=== PATIENT | male | born 1945 | race Caucasian/White ===

== ENCOUNTER 2022-05-26 16:52 | Inpatient (IN) | payer OTHER, MEDICARE ==
[~2022-05-26 16:52] MED LIST: Heparin 1,000 UNITS/ML VIAL ONE; Iopamidol 370 76% 100 ML VIAL ONE; Iopamidol-370 76% 500 ML 1 ML ONE
[2022-05-26] MEDS ORDERED: Boostrix 0.5 ML (Tdap) VIAL (>/=7 yrs of age) ONE (16:58)
[2022-05-26] MEDS ORDERED: CEFAZOLIN 1 GM VIAL ONE (16:58)
[2022-05-26] MEDS ORDERED: FENTANYL 50 MCG/ML 1 ML VIAL ONE ×2 (16:59→18:31)
[2022-05-26 17:17] LABS: #Lymphocytes 1.4 thou/uL (1.20-3.40); #Monocytes 0.7 thou/uL (0.11-0.59); #Neutrophils 12.8 thou/uL (1.40-6.50); %Basophils 0.1 % (0.0-1.0); %Eosinophils 0.3 % (0.0-10.0); %Lymphocytes 9.1 % (21.0-51.0); %Monocytes 4.6 % (0.0-10.0); %Neutrophils 85.9 % (42.0-75.0); Hemoglobin 10.8 g/dL (14.0-18.0); Mean Corpuscular HGB CONC 34.2 g/dL (32.0-36.0); Mean Corpuscular Hemoglobin 35.9 pg (27.0-31.0); Platelet Count 152 thou/uL (130-400); RBC Distribution Width 11.9 % (11.5-14.5); Red Blood Cell (RBC) Count 3.02 mill/uL (4.70-6.10); White Blood Cell (WBC) Count 14.9 thou/uL (4.8-10.8)
[2022-05-26 17:27] LABS: PTT 28.4 sec (22.9-36.1); Prothrombin Time 13.7 sec (12.0-14.7)
[2022-05-26 17:28] LABS: ALT (SGPT) 29 U/L (8-55); AST (SGOT) 27 U/L (5-34); Albumin 3.1 g/dL (3.4-4.8); Alkaline Phosphatase 48 U/L (40-110); Anion Gap 12 mmol/L (10-20); BUN (Urea Nitrogen) 17 mg/dL (8.4-25.7); Bilirubin, Total 0.5 mg/dL (0.2-1.2); Calc. Creatinine Clearance 0 mL/min (70-130); Calcium 8.2 mg/dL (7.8-10.44); Carbon Dioxide 17 mmol/L (23-31); Chloride 112 mmol/L (98-107); Estimated GFR 53; Globulin 1.9 g/dL (2.4-3.5); Glucose 153 mg/dL (83-110); Potassium 4.1 mmol/L (3.5-5.1); Sodium 137 mmol/L (136-145)
[2022-05-26] MEDS ORDERED: Morphine 4 MG/ML VIAL SLOW IVP PRN ×2 (17:46→18:04)
[2022-05-26] MEDS ORDERED: TETANUS, DIPHTHERIA TOX,ADULT (TDVAX) 0.5 ML VIAL IM ONE (17:46)
[2022-05-26] MEDS ORDERED: Dextrose 5% in Water 1,000 ML IV PRN (17:46)
[2022-05-26] MEDS ORDERED: Dextrose 50% Abboject 50 ML SYRINGE SLOW IVP PRN (17:46)
[2022-05-26] MEDS ORDERED: Sodium Chloride 0.9% 1,000 ML IV SCH (18:00)
[2022-05-26 18:07] LABS: Phosphorus 2.7 mg/dL (2.3-4.7)
[2022-05-26 18:10] LABS: Magnesium 1.8 mg/dL (1.6-2.6)
[2022-05-26] MEDS ORDERED: Sodium Phosphate 15 MMOL in Sodium Chloride 0.9% 250 ML 250 ML IVPB SCH (18:15)
[2022-05-26] MEDS ORDERED: Magnesium 2 GM/50 ML(in water) 2 GM in Premix Bag 1 BAG IVPB SCH (18:15)
[2022-05-26] MEDS ORDERED: Lidocaine 1% (PF) 30 ML VIAL ONE ×2 (19:02→19:13)
[2022-05-26] MEDS: Ondansetron PF 4 MG/2 ML Vial IVP PRN (20:55)
[2022-05-26] MEDS: Famotidine/PF 20 mg/2ml Vial SLOW IVP SCH (21:32)
[2022-05-26] MEDS: Sodium Chloride 0.9% 1,000 ML IV SCH (21:46)
[2022-05-26 23:05] LABS: #Lymphocytes 0.8 thou/uL (1.20-3.40); #Monocytes 1.1 thou/uL (0.11-0.59); #Neutrophils 12.2 thou/uL (1.40-6.50); %Basophils 0.1 % (0.0-1.0); %Eosinophils 0.1 % (0.0-10.0); %Lymphocytes 5.4 % (21.0-51.0); %Neutrophils 86.4 % (42.0-75.0); Hemoglobin 10.4 g/dL (14.0-18.0); Mean Corpuscular HGB CONC 34.5 g/dL (32.0-36.0); Mean Corpuscular Hemoglobin 33.6 pg (27.0-31.0); Mean Corpuscular Volume 97.4 fl (78.0-98.0); Mean Platelet Volume 6.8 fL (7.4-10.4); Platelet Count 123 thou/uL (130-400); RBC Distribution Width 14.4 % (11.5-14.5); Red Blood Cell (RBC) Count 3.09 mill/uL (4.70-6.10); White Blood Cell (WBC) Count 14.1 thou/uL (4.8-10.8)
[2022-05-26 23:21] LABS: Lactic Acid 1.7 mmol/L (0.5-2.2)
[2022-05-26 23:26] LABS: Anion Gap 12 mmol/L (10-20); BUN (Urea Nitrogen) 19 mg/dL (8.4-25.7); Calc. Creatinine Clearance 48 mL/min (70-130); Carbon Dioxide 19 mmol/L (23-31); Chloride 111 mmol/L (98-107); Estimated GFR 42; Glucose 166 mg/dL (83-110); Potassium 4.7 mmol/L (3.5-5.1); Sodium 137 mmol/L (136-145)
[2022-05-27] MEDS ORDERED: ALBUMIN 5% 25 GM/250 ML BAG IVPB SCH (00:15)
[2022-05-27] MEDS: FENTANYL 50 MCG/ML 1 ML VIAL SLOW IVP PRN ×5 (00:57→08:25)
[2022-05-27] MEDS: Insulin Regular 300 UNITS/3 ML VIAL SC PRN ×2 (02:13→05:43)
[2022-05-27 02:22] LABS: Bacteria/HPF None Seen HPF (None Seen); Bilirubin Negative (Negative); Blood, Urine 3+ (Negative); Clarity Clear (Clear); Glucose, Urine (Dipstick) 30 mg/dL (Negative); Ketone, Urine Negative (Negative); Leukocyte Negative Leu/uL (Negative); Nitrite Negative (Negative); Protein, Urine (Dipstick) 30 mg/dL (Neg-Trace); Squamous Epithelial 0-3 HPF (0-3); Urobilinogen Normal mg/dL (Less than 2)
[2022-05-27 02:23] LABS: Amphetamine Not Detected (NotDetected); Barbiturates Screen Not Detected (NotDetected); Benzodiazepine Screen Detected (NotDetected); Cocaine Metabolite Screen Not Detected (NotDetected); Methadone Not Detected (NotDetected); Methamphetamine Not Detected (NotDetected); Opiate Screen Detected (NotDetected); Oxycodone Screen Not Detected (NotDetected); Phencyclidine (PCP) Not Detected (NotDetected); THC/Cannabinoid Screen Not Detected (NotDetected); Tricyclic Screen Not Detected (NotDetected)
[2022-05-27 02:46] LABS: Specific Gravity, Urine 1.051 (1.002-1.036)
[2022-05-27 02:47] LABS: Urine Culture Reflex Yes Yes
[2022-05-27] MEDS: Ondansetron PF 4 MG/2 ML Vial IVP PRN ×2 (02:53→18:20)
[2022-05-27] MEDS: Sodium Chloride 0.9% 1,000 ML IV SCH ×3 (04:59→20:48)
[2022-05-27 05:41] LABS: #Lymphocytes 0.3 thou/uL (1.20-3.40); #Monocytes 0.7 thou/uL (0.11-0.59); #Neutrophils 9.7 thou/uL (1.40-6.50); %Basophils 0.1 % (0.0-1.0); %Eosinophils 0.1 % (0.0-10.0); %Lymphocytes 2.9 % (21.0-51.0); %Monocytes 6.8 % (0.0-10.0); %Neutrophils 90.1 % (42.0-75.0); Hemoglobin 9.5 g/dL (14.0-18.0); Mean Corpuscular HGB CONC 34.6 g/dL (32.0-36.0); Mean Corpuscular Hemoglobin 33.9 pg (27.0-31.0); Platelet Count 124 thou/uL (130-400); RBC Distribution Width 14.8 % (11.5-14.5); White Blood Cell (WBC) Count 10.7 thou/uL (4.8-10.8)
[2022-05-27 05:50] LABS: INR-International Normal Ratio 1.1; Prothrombin Time 14.7 sec (12.0-14.7)
[2022-05-27 06:23] LABS: Magnesium 2.2 mg/dL (1.6-2.6); Phosphorus 4.3 mg/dL (2.3-4.7)
[2022-05-27] MEDS: Famotidine/PF 20 mg/2ml Vial SLOW IVP SCH ×2 (08:25→20:47)
[2022-05-27] MEDS ORDERED: Zolpidem Tartrate 5 MG TAB PO PRN (08:27)
[2022-05-27] MEDS ORDERED: diphenhydrAMINE 25 MG CAP PO PRN (08:27)
[2022-05-27] MEDS ORDERED: diphenhydrAMINE 50 MG/ML VIAL IM PRN (08:27)
[2022-05-27] MEDS ORDERED: Naloxone HCl 0.4 mg/ml Vial IV PRN (08:27)
[2022-05-27] MEDS ORDERED: Promethazine HCl 25 MG/ML VIAL IM PRN (08:27)
[2022-05-27] MEDS ORDERED: HYDROmorphone 10 mg/100 ml CADD IVPB PRN ×2 (08:27→08:29)
[2022-05-27] MEDS ORDERED: diphenhydrAMINE 50 MG/ML VIAL IVP PRN (08:27)
[2022-05-27] MEDS ORDERED: Communication Order-Pharmacy FS SCH (08:30)
[2022-05-27] MEDS ORDERED: FLU VACC QS2022-23(65YR UP)/PF 240 MCG/0.7 ML SYRINGE IM ONE (09:00)
[2022-05-27] MEDS: Acetaminophen 500 MG TAB PO SCH ×3 (09:28→20:48)
[2022-05-27] MEDS: Senokot S 8.6-50 MG TAB PO SCH ×2 (09:29→20:48)
[2022-05-27] MEDS: Polyethylene Glycol 3350 17 GM Packet PO SCH (09:29)
[2022-05-27] MEDS: CEFAZOLIN 2 GM in Sodium Chloride 0.9% 100 ML IVPB SCH ×2 (09:53→17:17)
[2022-05-27] MEDS ORDERED: CEFAZOLIN 1 GM VIAL SLOW IVP SCH ×2 (10:00→14:00)
[2022-05-27 10:50] LABS: #Lymphocytes 0.5 thou/uL (1.20-3.40); #Neutrophils 10.9 thou/uL (1.40-6.50); %Basophils 0.1 % (0.0-1.0); %Eosinophils 0.1 % (0.0-10.0); %Lymphocytes 3.8 % (21.0-51.0); %Monocytes 8.2 % (0.0-10.0); %Neutrophils 87.9 % (42.0-75.0); Hemoglobin 9.3 g/dL (14.0-18.0); Mean Corpuscular HGB CONC 33.8 g/dL (32.0-36.0); Mean Corpuscular Hemoglobin 33.5 pg (27.0-31.0); Mean Corpuscular Volume 99.2 fl (78.0-98.0); Mean Platelet Volume 7.4 fL (7.4-10.4); Platelet Count 125 thou/uL (130-400); Red Blood Cell (RBC) Count 2.76 mill/uL (4.70-6.10); White Blood Cell (WBC) Count 12.4 thou/uL (4.8-10.8)
[2022-05-27 11:10] LABS: Anion Gap 17 mmol/L (10-20); BUN (Urea Nitrogen) 24 mg/dL (8.4-25.7); Calc. Creatinine Clearance 45 mL/min (70-130); Calcium 8.6 mg/dL (7.8-10.44); Carbon Dioxide 16 mmol/L (23-31); Chloride 112 mmol/L (98-107); Estimated GFR 37; Glucose 153 mg/dL (83-110); Potassium 4.9 mmol/L (3.5-5.1); Sodium 140 mmol/L (136-145)
[2022-05-27] MEDS ORDERED: Lidocaine 1% (PF) 30 ML VIAL ONE (12:48)
[2022-05-27] MEDS ORDERED: Sodium Chloride 0.9% 500 ML IV SCH (13:15)
[2022-05-27 17:35] LABS: #Lymphocytes 0.7 thou/uL (1.20-3.40); #Monocytes 1.2 thou/uL (0.11-0.59); #Neutrophils 10.6 thou/uL (1.40-6.50); %Lymphocytes 5.2 % (21.0-51.0); %Monocytes 9.9 % (0.0-10.0); %Neutrophils 84.9 % (42.0-75.0); Hemoglobin 8.5 g/dL (14.0-18.0); Mean Corpuscular HGB CONC 34.5 g/dL (32.0-36.0); Mean Corpuscular Hemoglobin 33.9 pg (27.0-31.0); Mean Corpuscular Volume 98.3 fl (78.0-98.0); Mean Platelet Volume 7.6 fL (7.4-10.4); Platelet Count 114 thou/uL (130-400); RBC Distribution Width 14.9 % (11.5-14.5); Red Blood Cell (RBC) Count 2.49 mill/uL (4.70-6.10); White Blood Cell (WBC) Count 12.5 thou/uL (4.8-10.8)
[2022-05-27] MEDS: Gabapentin 100 MG CAP PO SCH (20:48)
[2022-05-27 23:01] LABS: #Lymphocytes 0.6 thou/uL (1.20-3.40); #Monocytes 1.2 thou/uL (0.11-0.59); %Basophils 0.1 % (0.0-1.0); %Eosinophils 0.1 % (0.0-10.0); %Lymphocytes 4.6 % (21.0-51.0); %Monocytes 9.3 % (0.0-10.0); Mean Corpuscular HGB CONC 33.1 g/dL (32.0-36.0); Mean Corpuscular Hemoglobin 33.1 pg (27.0-31.0); Mean Corpuscular Volume 99.9 fl (78.0-98.0); Mean Platelet Volume 7.6 fL (7.4-10.4); Platelet Count 110 thou/uL (130-400); RBC Distribution Width 15.1 % (11.5-14.5); Red Blood Cell (RBC) Count 2.41 mill/uL (4.70-6.10); White Blood Cell (WBC) Count 12.8 thou/uL (4.8-10.8)
[2022-05-28] MEDS ORDERED: traMADol HCl 50 MG TAB PO SCH (00:30)
[2022-05-28] MEDS ORDERED: Sodium Chloride 0.9% 500 ML IV SCH (00:30)
[2022-05-28] MEDS: CEFAZOLIN 2 GM in Sodium Chloride 0.9% 100 ML IVPB SCH ×3 (00:51→17:22)
[2022-05-28] MEDS: Acetaminophen 500 MG TAB PO SCH ×4 (01:42→21:23)
[2022-05-28 01:56] LABS: Actual Bicarbonate (HCO3a) 18.4 mEq/L (22-28); Base Excess (BEa) -9.3 mEq/L (-2.0 to +3.0); CO2 Tension 49.1 mmHg (35.0-45.0); Calcium, Ionized (arterial) 1.18 mmol/L (1.12-1.30); Carboxyhemoglobin (COHb) 0.8 gm% (0.0-3.0); Hemoglobin (Hb) 8.4 g/dL (14.0-18.0); Potassium - ABG Lab 4.93 mmol/L (3.70-5.30)
[2022-05-28] MEDS ORDERED: Furosemide 40 MG/4 ML VIAL ONE (02:02)
[2022-05-28 02:12] LABS: pH, Arterial 7.19 (7.35-7.45)
[2022-05-28 02:14] LABS: ALV-art Gradient 80.265 mmHg (0-20); Puncture Site LBA
[2022-05-28] MEDS ORDERED: Furosemide 20 MG/2 ML VIAL SLOW IVP SCH (02:15)
[2022-05-28] MEDS: Sodium Chloride 0.9% 1,000 ML IV SCH ×2 (02:57→10:20)
[2022-05-28 04:51] LABS: Anion Gap 16 mmol/L (10-20); BUN (Urea Nitrogen) 26 mg/dL (8.4-25.7); CK (CPK) 2598 U/L (30-200); Calc. Creatinine Clearance 41 mL/min (70-130); Calcium 8.7 mg/dL (7.8-10.44); Carbon Dioxide 18 mmol/L (23-31); Chloride 112 mmol/L (98-107); Estimated GFR 33; Glucose 132 mg/dL (83-110); Magnesium 2.1 mg/dL (1.6-2.6); Phosphorus 4.1 mg/dL (2.3-4.7); Potassium 4.7 mmol/L (3.5-5.1); Sodium 141 mmol/L (136-145)
[2022-05-28 05:37] LABS: Band 36 % (5-11); Hemoglobin 8.4 g/dL (14.0-18.0); Lymphocytes 13 % (21-51); MDiff Complete? YES; Mean Corpuscular HGB CONC 33.4 g/dL (32.0-36.0); Mean Platelet Volume 7.8 fL (7.4-10.4); Monocytes 12 % (0-10); Neutrophil 39 % (42-75); Nucleated RBC 1 % (0); Platelet Count 117 thou/uL (130-400); Platelet Morphology Comment Appears Decreased; Red Blood Cell (RBC) Count 2.47 mill/uL (4.70-6.10)
[2022-05-28] MEDS: traMADol HCl 50 MG TAB PO SCH ×2 (06:11→12:51)
[2022-05-28 09:16] LABS: Actual Bicarbonate (HCO3a) 16.4 mEq/L (22-28); Calcium, Ionized (arterial) 1.26 mmol/L (1.12-1.30); Carboxyhemoglobin (COHb) 0.3 gm% (0.0-3.0); Hemoglobin (Hb) 8.7 g/dL (14.0-18.0); O2 Tension (PaO2), arterial 94.9 mmHg (> 70.0); Potassium - ABG Lab 4.53 mmol/L (3.70-5.30)
[2022-05-28] MEDS: Gabapentin 100 MG CAP PO SCH (09:35)
[2022-05-28] MEDS: Polyethylene Glycol 3350 17 GM Packet PO SCH (09:36)
[2022-05-28] MEDS: Senokot S 8.6-50 MG TAB PO SCH ×2 (09:36→21:24)
[2022-05-28] MEDS: Famotidine/PF 20 mg/2ml Vial SLOW IVP SCH (09:48)
[2022-05-28] MEDS ORDERED: Lactated Ringer's 1,000 ML IV SCH (10:00)
[2022-05-28 11:09] LABS: Puncture Site LRA; pH, Arterial 7.25 (7.35-7.45)
[2022-05-28] MEDS: Ondansetron PF 4 MG/2 ML Vial IVP PRN ×2 (13:15→13:40)
[2022-05-28] MEDS ORDERED: Ondansetron PF 4 MG/2 ML Vial IVP SCH (13:45)
[2022-05-28 14:54] LABS: SARS-CoV-2 NAA Rapid Test Not Detected (NotDetected)
[2022-05-28 15:12] LABS: Anion Gap 15 mmol/L (10-20); BUN (Urea Nitrogen) 32 mg/dL (8.4-25.7); Calc. Creatinine Clearance 36 mL/min (70-130); Calcium 8.7 mg/dL (7.8-10.44); Carbon Dioxide 17 mmol/L (23-31); Chloride 111 mmol/L (98-107); Estimated GFR 27; Glucose 128 mg/dL (83-110); Potassium 5.2 mmol/L (3.5-5.1); Sodium 138 mmol/L (136-145)
[2022-05-28] MEDS ORDERED: Midazolam HCl 2 mg/2 ml Vial ONE (15:39)
[2022-05-28] MEDS ORDERED: Midazolam HCl 2 mg/2 ml Vial IVP SCH ×2 (15:45→19:45)
[2022-05-28] MEDS ORDERED: Famotidine/PF 20 mg/2ml Vial SLOW IVP SCH (17:00)
[2022-05-28] MEDS ORDERED: Sodium Chloride 0.9% 1,000 ML IV SCH (19:30)
[2022-05-28 19:43] LABS: Hemoglobin 8.7 g/dL (14.0-18.0); Mean Corpuscular HGB CONC 32.1 g/dL (32.0-36.0); Mean Corpuscular Hemoglobin 33.6 pg (27.0-31.0); Mean Platelet Volume 8.1 fL (7.4-10.4); Platelet Count 147 thou/uL (130-400); White Blood Cell (WBC) Count 8.7 thou/uL (4.8-10.8)
[2022-05-28 20:00] LABS: Lactic Acid 4.5 mmol/L (0.5-2.2)
[2022-05-28 20:04] LABS: ALT (SGPT) 556 U/L (8-55); AST (SGOT) 868 U/L (5-34); Albumin 3.3 g/dL (3.4-4.8); Alkaline Phosphatase 45 U/L (40-110); Anion Gap 17 mmol/L (10-20); BUN (Urea Nitrogen) 32 mg/dL (8.4-25.7); Bilirubin, Total 0.5 mg/dL (0.2-1.2); Calc. Creatinine Clearance 35 mL/min (70-130); Calcium 8.9 mg/dL (7.8-10.44); Carbon Dioxide 14 mmol/L (23-31); Chloride 113 mmol/L (98-107); Estimated GFR 27; Globulin 2.4 g/dL (2.4-3.5); Glucose 110 mg/dL (83-110); Phosphorus 4.7 mg/dL (2.3-4.7); Potassium 5.4 mmol/L (3.5-5.1); Protein, Total 5.7 g/dL (5.8-8.1); Sodium 139 mmol/L (136-145)
[2022-05-28 20:12] LABS: Band 52 % (5-11); Lymphocytes 7 % (21-51); MDiff Complete? YES; Macrocytosis SLIGHT = 6-15 cells (100X) (0-5/hpf); Metamyelocyte 1 % (0-0); Monocytes 1 % (0-10); Neutrophil 39 % (42-75)
[2022-05-28 20:37] LABS: Actual Bicarbonate (HCO3a) 17.7 mEq/L (22-28); Base Excess (BEa) -8.2 mEq/L (-2.0 to +3.0); CO2 Tension 37.8 mmHg (35.0-45.0); Calcium, Ionized (arterial) 1.25 mmol/L (1.12-1.30); Carboxyhemoglobin (COHb) 0.8 gm% (0.0-3.0); Hemoglobin (Hb) 8.6 g/dL (14.0-18.0); O2 Tension (PaO2), arterial 75.4 mmHg (> 70.0); Potassium - ABG Lab 5.04 mmol/L (3.70-5.30); pH, Arterial 7.29 (7.35-7.45)
[2022-05-28 20:40] LABS: Puncture Site LBA
[2022-05-28] MEDS: Sodium Bicarbonate 100 MEQ in Dextrose 5% in Water 1,000 ML IV SCH (21:29)
[2022-05-29] MEDS: Acetaminophen 500 MG TAB PO SCH ×4 (03:14→21:13)
[2022-05-29 04:24] LABS: Lactic Acid 2.5 mmol/L (0.5-2.2)
[2022-05-29 04:44] LABS: Band 69 % (5-11); Hemoglobin 7.1 g/dL (14.0-18.0); Lymphocytes 5 % (21-51); MDiff Complete? YES; Mean Corpuscular HGB CONC 33.9 g/dL (32.0-36.0); Mean Corpuscular Hemoglobin 34.5 pg (27.0-31.0); Mean Platelet Volume 8.2 fL (7.4-10.4); Metamyelocyte 1 % (0-0); Monocytes 3 % (0-10); Neutrophil 22 % (42-75); Platelet Count 138 thou/uL (130-400); RBC Distribution Width 15.1 % (11.5-14.5); Red Blood Cell (RBC) Count 2.07 mill/uL (4.70-6.10); White Blood Cell (WBC) Count 8.7 thou/uL (4.8-10.8)
[2022-05-29 05:23] LABS: ALT (SGPT) 407 U/L (8-55); AST (SGOT) 800 U/L (5-34); Alkaline Phosphatase 41 U/L (40-110); Anion Gap 12 mmol/L (10-20); BUN (Urea Nitrogen) 37 mg/dL (8.4-25.7); Bilirubin, Total 0.6 mg/dL (0.2-1.2); CK (CPK) 3219 U/L (30-200); Calc. Creatinine Clearance 34 mL/min (70-130); Calcium 9.1 mg/dL (7.8-10.44); Carbon Dioxide 22 mmol/L (23-31); Chloride 109 mmol/L (98-107); Estimated GFR 25; Globulin 2.1 g/dL (2.4-3.5); Glucose 142 mg/dL (83-110); Phosphorus 3.4 mg/dL (2.3-4.7); Potassium 4.5 mmol/L (3.5-5.1); Protein, Total 5.1 g/dL (5.8-8.1); Sodium 138 mmol/L (136-145)
[2022-05-29] MEDS: CEFAZOLIN 2 GM in Sodium Chloride 0.9% 100 ML IVPB SCH ×2 (05:28→18:23)
[2022-05-29] MEDS: Sodium Bicarbonate 100 MEQ in Dextrose 5% in Water 1,000 ML IV SCH (05:28)
[2022-05-29] MEDS: Famotidine/PF 20 mg/2ml Vial SLOW IVP SCH (09:45)
[2022-05-29] MEDS: Senokot S 8.6-50 MG TAB PO SCH ×2 (09:45→21:12)
[2022-05-29] MEDS: Polyethylene Glycol 3350 17 GM Packet PO SCH (09:45)
[2022-05-29] MEDS: Nicotine 21 MG PATCH TD SCH (09:46)
[2022-05-29] MEDS ORDERED: FENTANYL 50 MCG/ML 1 ML VIAL SLOW IVP SCH ×2 (11:30)
[2022-05-29] MEDS ORDERED: Sodium Chloride 0.9% 1,000 ML IV SCH (18:45)
[2022-05-29] MEDS: HYDROmorphone 10 mg/100 ml CADD IVPB PRN (23:17)
[2022-05-30] MEDS: Sodium Bicarbonate 100 MEQ in Dextrose 5% in Water 1,000 ML IV SCH (02:07)
[2022-05-30] MEDS: Acetaminophen 500 MG TAB PO SCH ×4 (02:08→20:07)
[2022-05-30] MEDS: CEFAZOLIN 2 GM in Sodium Chloride 0.9% 100 ML IVPB SCH (05:00)
[2022-05-30 05:25] LABS: Hemoglobin 8.2 g/dL (14.0-18.0); Mean Corpuscular HGB CONC 33.3 g/dL (32.0-36.0); Mean Corpuscular Volume 99.1 fl (78.0-98.0); Mean Platelet Volume 7.4 fL (7.4-10.4); Platelet Count 182 thou/uL (130-400); RBC Distribution Width 15.6 % (11.5-14.5); Red Blood Cell (RBC) Count 2.48 mill/uL (4.70-6.10); White Blood Cell (WBC) Count 12.1 thou/uL (4.8-10.8)
[2022-05-30 05:32] LABS: INR-International Normal Ratio 1.3; PTT 36.7 sec (22.9-36.1); Prothrombin Time 16.9 sec (12.0-14.7)
[2022-05-30 05:58] LABS: ALT (SGPT) 101 U/L (8-55); AST (SGOT) 176 U/L (5-34); Albumin 2.8 g/dL (3.4-4.8); Alkaline Phosphatase 55 U/L (40-110); Anion Gap 11 mmol/L (10-20); BUN (Urea Nitrogen) 38 mg/dL (8.4-25.7); CK (CPK) 1548 U/L (30-200); Calc. Creatinine Clearance 56 mL/min (70-130); Calcium 9.4 mg/dL (7.8-10.44); Carbon Dioxide 25 mmol/L (23-31); Chloride 106 mmol/L (98-107); Estimated GFR 45; Globulin 2.5 g/dL (2.4-3.5); Glucose 126 mg/dL (83-110); Phosphorus 1.9 mg/dL (2.3-4.7); Potassium 4.1 mmol/L (3.5-5.1); Protein, Total 5.3 g/dL (5.8-8.1); Sodium 138 mmol/L (136-145)
[2022-05-30 06:10] LABS: Band 27 % (5-11); Lymphocytes 2 % (21-51); MDiff Complete? YES; Metamyelocyte 2 % (0-0); Monocytes 1 % (0-10); Myelocyte 1 % (0-0); Neutrophil 67 % (42-75)
[2022-05-30] MEDS ORDERED: Sodium Phosphate 30 MMOL in Sodium Chloride 0.9% 250 ML 250 ML IVPB SCH (07:30)
[2022-05-30] MEDS: Polyethylene Glycol 3350 17 GM Packet PO SCH (08:38)
[2022-05-30] MEDS: Famotidine/PF 20 mg/2ml Vial SLOW IVP SCH (08:38)
[2022-05-30] MEDS: Nicotine 21 MG PATCH TD SCH (08:38)
[2022-05-30] MEDS: Senokot S 8.6-50 MG TAB PO SCH ×2 (08:38→20:07)
[2022-05-30] MEDS ORDERED: CEFAZOLIN 2 GM in Sodium Chloride 0.9% 100 ML IVPB SCH (14:00)
[2022-05-31] MEDS: Acetaminophen 500 MG TAB PO SCH ×4 (03:27→20:25)
[2022-05-31 06:59] LABS: Band 16 % (5-11); Hemoglobin 8.3 g/dL (14.0-18.0); Lymphocytes 3 % (21-51); MDiff Complete? YES; Mean Corpuscular HGB CONC 32.4 g/dL (32.0-36.0); Mean Corpuscular Hemoglobin 32.6 pg (27.0-31.0); Mean Platelet Volume 7.3 fL (7.4-10.4); Monocytes 9 % (0-10); Myelocyte 1 % (0-0); Neutrophil 71 % (42-75); Nucleated RBC 4 % (0); Platelet Count 206 thou/uL (130-400); RBC Distribution Width 15.7 % (11.5-14.5); Red Blood Cell (RBC) Count 2.54 mill/uL (4.70-6.10); White Blood Cell (WBC) Count 21.5 thou/uL (4.8-10.8)
[2022-05-31 08:05] LABS: Anion Gap 11 mmol/L (10-20); BUN (Urea Nitrogen) 36 mg/dL (8.4-25.7); CK (CPK) 1066 U/L (30-200); Calc. Creatinine Clearance 75 mL/min (70-130); Calcium 9.6 mg/dL (7.8-10.44); Carbon Dioxide 27 mmol/L (23-31); Chloride 107 mmol/L (98-107); Estimated GFR 65; Glucose 101 mg/dL (83-110); Magnesium 2.1 mg/dL (1.6-2.6); Phosphorus 2.7 mg/dL (2.3-4.7); Potassium 4.3 mmol/L (3.5-5.1); Sodium 141 mmol/L (136-145)
[2022-05-31] MEDS: Senokot S 8.6-50 MG TAB PO SCH ×2 (08:22→20:25)
[2022-05-31] MEDS: Polyethylene Glycol 3350 17 GM Packet PO SCH (08:22)
[2022-05-31] MEDS: Nicotine 21 MG PATCH TD SCH (08:22)
[2022-05-31] MEDS: cloNIDine 0.2 MG TAB PO SCH ×3 (08:23→20:26)
[2022-05-31] MEDS: Famotidine/PF 20 mg/2ml Vial SLOW IVP SCH ×2 (08:23→20:26)
[2022-05-31] MEDS ORDERED: Bupivacaine HCl 0.5%/Epinephrine 1:200,000/PF 30 ml Vial ONE (10:08)
[2022-05-31] MEDS ORDERED: Phenylephrine 10 MG/ML VIAL ONE (10:35)
[2022-05-31] MEDS ORDERED: fentaNYL PF 100 MCG/2 ML SYRINGE ONE (10:35)
[2022-05-31] MEDS ORDERED: NEOSTIGMINE 3 MG/3 ML SYR 3 MG/3 ML SYRINGE ONE (10:51)
[2022-05-31] MEDS ORDERED: PROPOFOL 200 MG/20 ML VIAL ONE (10:51)
[2022-05-31] MEDS ORDERED: Glycopyrrolate 0.2 MG/ML 5 ML SYRINGE ONE (10:51)
[2022-05-31] MEDS ORDERED: Succinylcholine Chloride 200 MG/10 ML VIAL ONE (10:51)
[2022-05-31] MEDS ORDERED: Rocuronium Bromide 10 MG/ML (10ML VIAL) ONE (10:51)
[2022-05-31] MEDS ORDERED: Ondansetron PF 4 MG/2 ML Vial ONE (10:51)
[2022-05-31] MEDS ORDERED: Esmolol 100 MG/10 ML VIAL ONE (10:51)
[2022-05-31] MEDS ORDERED: SUGAMMADEX SODIUM 200 MG/2 ML VIAL ONE (12:23)
[2022-06-01 06:10] LABS: Anion Gap 13 mmol/L (10-20); BUN (Urea Nitrogen) 41 mg/dL (8.4-25.7); Calc. Creatinine Clearance 78 mL/min (70-130); Carbon Dioxide 26 mmol/L (23-31); Chloride 108 mmol/L (98-107); Estimated GFR 68; Glucose 107 mg/dL (83-110); Magnesium 2.1 mg/dL (1.6-2.6); Potassium 4.7 mmol/L (3.5-5.1); Sodium 142 mmol/L (136-145)
[2022-06-01 06:20] LABS: Band 26 % (5-11); Hemoglobin 7.8 g/dL (14.0-18.0); Lymphocytes 5 % (21-51); MDiff Complete? YES; Mean Corpuscular HGB CONC 32.7 g/dL (32.0-36.0); Mean Corpuscular Hemoglobin 33.5 pg (27.0-31.0); Mean Platelet Volume 8.2 fL (7.4-10.4); Metamyelocyte 1 % (0-0); Monocytes 3 % (0-10); Myelocyte 3 % (0-0); Neutrophil 62 % (42-75); Nucleated RBC 9 % (0); Platelet Count 238 10x3/uL (130-400); Platelet Morphology Comment Appears Adequate; RBC Distribution Width 15.8 % (11.5-14.5); Red Blood Cell (RBC) Count 2.34 mill/uL (4.70-6.10); White Blood Cell (WBC) Count 14.4 10x3/uL (4.8-10.8)
[2022-06-01] MEDS: cloNIDine 0.2 MG TAB PO SCH ×4 (06:48→21:22)
[2022-06-01] MEDS: Acetaminophen 500 MG TAB PO SCH ×4 (06:48→21:20)
[2022-06-01] MEDS: Senokot S 8.6-50 MG TAB PO SCH ×2 (08:37→21:20)
[2022-06-01] MEDS: Polyethylene Glycol 3350 17 GM Packet PO SCH (08:37)
[2022-06-01] MEDS: Famotidine/PF 20 mg/2ml Vial SLOW IVP SCH ×2 (08:38→21:21)
[2022-06-01] MEDS: Nicotine 21 MG PATCH TD SCH (08:38)
[2022-06-01] MEDS: Ascorbic Acid 500 mg Chewable Tablet PO SCH ×2 (11:18→21:20)
[2022-06-01] MEDS: Ferrous Sulfate 325 MG TAB PO SCH ×2 (11:18→21:20)
[2022-06-01] MEDS: HYDROmorphone 10 mg/100 ml CADD IVPB PRN (12:35)
[2022-06-01] MEDS ORDERED: Dextrose 5 % And 0.9 % NaCl 1,000 ML IV SCH (18:15)
[2022-06-02] MEDS: cloNIDine 0.2 MG TAB PO SCH ×4 (02:47→20:05)
[2022-06-02] MEDS: Acetaminophen 500 MG TAB PO SCH ×4 (02:47→20:04)
[2022-06-02 05:02] LABS: Band 14 % (5-11); Eosinophils 1 % (0-10); Hemoglobin 7.9 g/dL (14.0-18.0); Lymphocytes 2 % (21-51); MDiff Complete? YES; Mean Corpuscular HGB CONC 31.6 g/dL (32.0-36.0); Mean Corpuscular Hemoglobin 32.7 pg (27.0-31.0); Mean Platelet Volume 7.4 fL (7.4-10.4); Metamyelocyte 1 % (0-0); Monocytes 12 % (0-10); Myelocyte 3 % (0-0); Neutrophil 67 % (42-75); Nucleated RBC 3 % (0); Platelet Count 298 10x3/uL (130-400); RBC Distribution Width 15.7 % (11.5-14.5); Red Blood Cell (RBC) Count 2.41 mill/uL (4.70-6.10)
[2022-06-02 06:32] LABS: Anion Gap 11 mmol/L (10-20); BUN (Urea Nitrogen) 38 mg/dL (8.4-25.7); Calc. Creatinine Clearance 80 mL/min (70-130); Calcium 9.1 mg/dL (7.8-10.44); Carbon Dioxide 27 mmol/L (23-31); Chloride 111 mmol/L (98-107); Estimated GFR 70; Glucose 113 mg/dL (83-110); Magnesium 2.2 mg/dL (1.6-2.6); Potassium 4.1 mmol/L (3.5-5.1); Sodium 145 mmol/L (136-145)
[2022-06-02] MEDS: Senokot S 8.6-50 MG TAB PO SCH ×2 (10:24→20:06)
[2022-06-02] MEDS: Ferrous Sulfate 325 MG TAB PO SCH ×2 (10:24→20:05)
[2022-06-02] MEDS: Ascorbic Acid 500 mg Chewable Tablet PO SCH ×2 (10:25→20:05)
[2022-06-02] MEDS: Famotidine/PF 20 mg/2ml Vial SLOW IVP SCH ×2 (10:26→20:06)
[2022-06-02] MEDS: Polyethylene Glycol 3350 17 GM Packet PO SCH (10:26)
[2022-06-02] MEDS: Nicotine 21 MG PATCH TD SCH (10:26)
[2022-06-02] MEDS ORDERED: CEFAZOLIN 2 GM in Sodium Chloride 0.9% 100 ML IVPB SCH (11:45)
[2022-06-02] MEDS ORDERED: Lidocaine 1% (PF) 30 ML VIAL ONE (11:50)
[2022-06-02] MEDS ORDERED: LYTES IN TPN IVPB PRN (12:24)
[2022-06-02] MEDS: Multivitamins, Adult 10 ML, TRACE ELEMENT CONCENTRATE 1 ML in D15W-AA 5% with Lytes 2,0... IV SCH (14:32)
[2022-06-02 15:13] LABS: Cardiac Risk 4.1 (Less than 4.5)
[2022-06-02] MEDS: Fluticasone Propionate Nasal Spray 16 gm Bottle NASAL SCH (20:06)
[2022-06-03] MEDS: Acetaminophen 500 MG TAB PO SCH ×4 (03:10→20:14)
[2022-06-03] MEDS: cloNIDine 0.2 MG TAB PO SCH ×5 (03:10→21:16)
[2022-06-03 05:20] LABS: Anion Gap 9 mmol/L (10-20); BUN (Urea Nitrogen) 34 mg/dL (8.4-25.7); Calc. Creatinine Clearance 88 mL/min (70-130); Calcium 9.3 mg/dL (7.8-10.44); Carbon Dioxide 26 mmol/L (23-31); Chloride 114 mmol/L (98-107); Estimated GFR 78; Glucose 157 mg/dL (83-110); Phosphorus 2.8 mg/dL (2.3-4.7); Potassium 3.9 mmol/L (3.5-5.1); Sodium 145 mmol/L (136-145)
[2022-06-03 05:57] LABS: Band 24 % (5-11); Hemoglobin 8.3 g/dL (14.0-18.0); Hypochromia SLIGHT = 6-15 cells (100X) (0-5/hpf); Lymphocytes 4 % (21-51); MDiff Complete? YES; Macrocytosis SLIGHT = 6-15 cells (100X) (0-5/hpf); Mean Corpuscular HGB CONC 31.6 g/dL (32.0-36.0); Mean Corpuscular Hemoglobin 33.1 pg (27.0-31.0); Mean Platelet Volume 7.6 fL (7.4-10.4); Monocytes 4 % (0-10); Neutrophil 68 % (42-75); Platelet Count 419 10x3/uL (130-400); Platelet Morphology Comment Appears Increased; RBC Distribution Width 15.8 % (11.5-14.5); Red Blood Cell (RBC) Count 2.52 mill/uL (4.70-6.10); White Blood Cell (WBC) Count 21.6 10x3/uL (4.8-10.8)
[2022-06-03] MEDS ORDERED: Enoxaparin Sodium 40 MG/0.4 ML SYRINGE SC SCH ×2 (08:15→09:00)
[2022-06-03] MEDS: Polyethylene Glycol 3350 17 GM Packet PO SCH (08:58)
[2022-06-03] MEDS: Ascorbic Acid 500 mg Chewable Tablet PO SCH ×2 (08:59→20:12)
[2022-06-03] MEDS: Pantoprazole 40 MG VIAL IVP SCH ×2 (08:59→20:12)
[2022-06-03] MEDS: Senokot S 8.6-50 MG TAB PO SCH ×2 (08:59→20:12)
[2022-06-03] MEDS: Nicotine 21 MG PATCH TD SCH (08:59)
[2022-06-03] MEDS: Ferrous Sulfate 325 MG TAB PO SCH ×2 (08:59→20:12)
[2022-06-03] MEDS ORDERED: Amlodipine 10 MG TAB PO SCH (09:00)
[2022-06-03] MEDS ORDERED: Metoclopramide HCl 10 MG/2 ML VIAL IVP SCH (14:00)
[2022-06-03] MEDS ORDERED: Multivitamins, Adult 10 ML, TRACE ELEMENT CONCENTRATE 1 ML in D15W-AA 5% with Lytes 2,0... IV SCH (14:00)
[2022-06-03] MEDS ORDERED: Cyclobenzaprine 10 MG TAB PO PRN (14:15)
[2022-06-03] MEDS ORDERED: Acetaminophen/Codeine 30-300mg Tablet PO SCH (14:30)
[2022-06-03] MEDS: Atorvastatin Calcium 20 MG TAB PO SCH (20:11)
[2022-06-03] MEDS: Pregabalin 50 MG CAP PO SCH (20:12)
[2022-06-03] MEDS: Tamsulosin HCl 0.4 MG CAP PO SCH (20:12)
[2022-06-03] MEDS: Ibuprofen 200 MG TAB PO SCH (21:16)
[2022-06-03] MEDS: Insulin Regular 300 UNITS/3 ML VIAL SC PRN (23:36)
[2022-06-04] MEDS: cloNIDine 0.2 MG TAB PO SCH ×4 (03:25→21:43)
[2022-06-04] MEDS: Acetaminophen 500 MG TAB PO SCH (03:26)
[2022-06-04 04:56] LABS: Anion Gap 11 mmol/L (10-20); BUN (Urea Nitrogen) 38 mg/dL (8.4-25.7); Calc. Creatinine Clearance 82 mL/min (70-130); Calcium 9.3 mg/dL (7.8-10.44); Carbon Dioxide 26 mmol/L (23-31); Chloride 111 mmol/L (98-107); Estimated GFR 72; Glucose 162 mg/dL (83-110); Phosphorus 3.8 mg/dL (2.3-4.7); Potassium 3.7 mmol/L (3.5-5.1); Sodium 144 mmol/L (136-145)
[2022-06-04] MEDS ORDERED: Morphine 2 MG/ML VIAL SLOW IVP PRN (05:00)
[2022-06-04 05:11] LABS: Anisocytosis SLIGHT = 6-15 cells (100X) (0-5/hpf); Band 15 % (5-11); Eosinophils 1 % (0-10); Hemoglobin 8.2 g/dL (14.0-18.0); Hypochromia SLIGHT = 6-15 cells (100X) (0-5/hpf); Lymphocytes 2 % (21-51); MDiff Complete? YES; Macrocytosis MODERATE=16-30 cells (100X) (0-5/hpf); Mean Corpuscular Hemoglobin 32.8 pg (27.0-31.0); Monocytes 1 % (0-10); Neutrophil 81 % (42-75); Ovalocytes SLIGHT = 2-5 cells (100X) (0-1/hpf); Platelet Count 463 10x3/uL (130-400); Platelet Morphology Comment Appears Increased; Polychromasia SLIGHT = 2-3 cells (100X) (0-2/hpf); RBC Distribution Width 15.7 % (11.5-14.5); Red Blood Cell (RBC) Count 2.49 mill/uL (4.70-6.10); Target Cells SLIGHT = 2-5 cells (100X) (0-1/hpf); Toxic Granulation SLIGHT; White Blood Cell (WBC) Count 22.8 10x3/uL (4.8-10.8)
[2022-06-04] MEDS: Insulin Regular 300 UNITS/3 ML VIAL SC PRN ×2 (05:47→11:51)
[2022-06-04] MEDS: Ibuprofen 200 MG TAB PO SCH ×3 (05:47→21:45)
[2022-06-04] MEDS ORDERED: Cyclobenzaprine 10 MG TAB PO PRN (07:47)
[2022-06-04] MEDS ORDERED: Morphine 4 MG/ML VIAL SLOW IVP PRN (07:56)
[2022-06-04] MEDS: Enoxaparin Sodium 40 MG/0.4 ML SYRINGE SC SCH (08:39)
[2022-06-04] MEDS: Ascorbic Acid 500 mg Chewable Tablet PO SCH ×2 (08:40→21:43)
[2022-06-04] MEDS: Pregabalin 50 MG CAP PO SCH ×2 (08:40→21:44)
[2022-06-04] MEDS: Pantoprazole 40 MG VIAL IVP SCH ×2 (08:40→21:43)
[2022-06-04] MEDS: Ferrous Sulfate 325 MG TAB PO SCH ×2 (08:41→21:44)
[2022-06-04] MEDS: Acetaminophen/Codeine 30-300mg Tablet PO SCH ×3 (08:41→21:46)
[2022-06-04] MEDS: Nicotine 21 MG PATCH TD SCH (08:44)
[2022-06-04] MEDS ORDERED: Amlodipine 5 MG TAB PO SCH (09:00)
[2022-06-04] MEDS: Senokot S 8.6-50 MG TAB PO SCH ×2 (09:08→21:46)
[2022-06-04] MEDS: Polyethylene Glycol 3350 17 GM Packet PO SCH (09:08)
[2022-06-04] MEDS: Fluticasone Propionate Nasal Spray 16 gm Bottle NASAL SCH (10:20)
[2022-06-04] MEDS: Multivitamins, Adult 10 ML, TRACE ELEMENT CONCENTRATE 1 ML in D15W-AA 5% with Lytes 2,0... IV SCH (15:53)
[2022-06-04] MEDS ORDERED: Potassium Phosphate 30 MMOL in Sodium Chloride 0.9% 250 ML 250 ML IVPB SCH (16:15)
[2022-06-04] MEDS: Tamsulosin HCl 0.4 MG CAP PO SCH (21:43)
[2022-06-04] MEDS: Atorvastatin Calcium 20 MG TAB PO SCH (21:44)
[2022-06-04] MEDS: Ondansetron PF 4 MG/2 ML Vial IVP PRN (22:12)
[2022-06-05] MEDS: Acetaminophen/Codeine 30-300mg Tablet PO SCH ×4 (02:00→21:00)
[2022-06-05] MEDS: Insulin Regular 300 UNITS/3 ML VIAL SC PRN (02:26)
[2022-06-05] MEDS: cloNIDine 0.2 MG TAB PO SCH (05:54)
[2022-06-05] MEDS: Ibuprofen 200 MG TAB PO SCH (05:55)
[2022-06-05] MEDS: Polyethylene Glycol 3350 17 GM Packet PO SCH (08:25)
[2022-06-05] MEDS: Ascorbic Acid 500 mg Chewable Tablet PO SCH ×2 (08:25→21:00)
[2022-06-05] MEDS: Senokot S 8.6-50 MG TAB PO SCH ×2 (08:25→21:00)
[2022-06-05] MEDS: Nicotine 21 MG PATCH TD SCH (08:25)
[2022-06-05] MEDS: Pregabalin 50 MG CAP PO SCH (08:25)
[2022-06-05] MEDS: Ferrous Sulfate 325 MG TAB PO SCH ×2 (08:25→21:00)
[2022-06-05] MEDS: Fluticasone Propionate Nasal Spray 16 gm Bottle NASAL SCH (08:26)
[2022-06-05] MEDS: Pantoprazole 40 MG VIAL IVP SCH ×2 (08:26→22:55)
[2022-06-05] MEDS: Enoxaparin Sodium 40 MG/0.4 ML SYRINGE SC SCH (08:26)
[2022-06-05] MEDS ORDERED: Acetaminophen/Codeine 30-300mg Tablet PO PRN (10:20)
[2022-06-05] MEDS ORDERED: Furosemide 20 MG/2 ML VIAL SLOW IVP SCH (12:00)
[2022-06-05] MEDS: cloNIDine 0.1 MG TAB PO SCH ×3 (12:01→22:21)
[2022-06-05] MEDS: Ondansetron PF 4 MG/2 ML Vial IVP PRN (12:51)
[2022-06-05] MEDS ORDERED: Ketorolac Tromethamine 30 MG/ML VIAL IVP SCH ×2 (13:30→18:00)
[2022-06-05] MEDS ORDERED: Pregabalin 25 MG CAP PO SCH ×3 (13:45→21:00)
[2022-06-05] MEDS: Scopolamine 1.5 mg/72 hour Patch TD SCH (13:53)
[2022-06-05] MEDS ORDERED: Morphine 4 MG/ML VIAL SLOW IVP PRN (14:26)
[2022-06-05] MEDS ORDERED: Sodium Chloride 0.9% 500 ML IV SCH ×2 (18:00→19:00)
[2022-06-05 19:58] LABS: Hemoglobin 7.5 g/dL (14.0-18.0); Mean Corpuscular HGB CONC 30.7 g/dL (32.0-36.0); Mean Corpuscular Hemoglobin 32.2 pg (27.0-31.0); Mean Platelet Volume 8.4 fL (7.4-10.4); Platelet Count 596 10x3/uL (130-400); RBC Distribution Width 15.4 % (11.5-14.5); Red Blood Cell (RBC) Count 2.33 mill/uL (4.70-6.10); White Blood Cell (WBC) Count 22.2 10x3/uL (4.8-10.8)
[2022-06-05 19:58] LABS: Actual Bicarbonate (HCO3a) 21.1 mEq/L (22-28); Base Excess (BEa) -1.7 mEq/L (-2.0 to +3.0); Calcium, Ionized (arterial) 1.13 mmol/L (1.12-1.30); Hemoglobin (Hb) 8.4 g/dL (14.0-18.0); pH, Arterial 7.49 (7.35-7.45)
[2022-06-05 20:06] LABS: Lactic Acid 2.2 mmol/L (0.5-2.2)
[2022-06-05] MEDS ORDERED: diphenhydrAMINE 50 MG/ML VIAL IVP PRN (20:08)
[2022-06-05] MEDS ORDERED: HYDROmorphone 10 mg/100 ml CADD IVPB PRN (20:08)
[2022-06-05] MEDS ORDERED: Zolpidem Tartrate 5 MG TAB PO PRN (20:08)
[2022-06-05] MEDS ORDERED: diphenhydrAMINE 25 MG CAP PO PRN (20:08)
[2022-06-05] MEDS ORDERED: Promethazine HCl 25 MG/ML VIAL IM PRN (20:08)
[2022-06-05] MEDS ORDERED: Naloxone HCl 0.4 mg/ml Vial IV PRN (20:08)
[2022-06-05] MEDS ORDERED: diphenhydrAMINE 50 MG/ML VIAL IM PRN (20:08)
[2022-06-05] MEDS ORDERED: Communication Order-Pharmacy FS SCH (20:15)
[2022-06-05 20:16] LABS: Troponin I 0.013 ng/mL (< 0.028)
[2022-06-05 20:31] LABS: ALT (SGPT) 20 U/L (8-55); AST (SGOT) 34 U/L (5-34); Albumin 2.2 g/dL (3.4-4.8); Alkaline Phosphatase 128 U/L (40-110); Anion Gap 15 mmol/L (10-20); BUN (Urea Nitrogen) 53 mg/dL (8.4-25.7); Bilirubin, Direct 6.3 mg/dL (0.1-0.3); Bilirubin, Total 8.4 mg/dL (0.2-1.2); Calc. Creatinine Clearance 48 mL/min (70-130); Calcium 8.5 mg/dL (7.8-10.44); Carbon Dioxide 21 mmol/L (23-31); Chloride 107 mmol/L (98-107); Estimated GFR 40; Glucose 117 mg/dL (83-110); Magnesium 1.8 mg/dL (1.6-2.6); Phosphorus 4.8 mg/dL (2.3-4.7); Potassium 4.7 mmol/L (3.5-5.1); Sodium 138 mmol/L (136-145)
[2022-06-05 20:33] LABS: Anisocytosis SLIGHT = 6-15 cells (100X) (0-5/hpf); Band 19 % (5-11); Burr Cells SLIGHT = 2-5 cells (100X) (0-1/hpf); Hypochromia SLIGHT = 6-15 cells (100X) (0-5/hpf); Lymphocytes 6 % (21-51); MDiff Complete? YES; Macrocytosis MODERATE=16-30 cells (100X) (0-5/hpf); Monocytes 3 % (0-10); Myelocyte 1 % (0-0); Neutrophil 71 % (42-75); Ovalocytes SLIGHT = 2-5 cells (100X) (0-1/hpf); Platelet Morphology Comment Appears Increased; Polychromasia SLIGHT = 2-3 cells (100X) (0-2/hpf); Target Cells SLIGHT = 2-5 cells (100X) (0-1/hpf)
[2022-06-05 20:36] LABS: O2 Tension (PaO2), arterial 53.4 mmHg (> 70.0); Puncture Site R RAD
[2022-06-05] MEDS ORDERED: Sodium Bicarbonate 100 MEQ in Dextrose 5% in Water 1,000 ML IV SCH (20:45)
[2022-06-05] MEDS: Gabapentin 100 MG CAP PO SCH (21:00)
[2022-06-05] MEDS: Tamsulosin HCl 0.4 MG CAP PO SCH (21:00)
[2022-06-05] MEDS: Atorvastatin Calcium 20 MG TAB PO SCH (21:00)
[2022-06-05] MEDS ORDERED: Sodium Chloride 0.9% 1,000 ML IV SCH (22:00)
[2022-06-06 03:07] LABS: Hemoglobin 7.7 g/dL (14.0-18.0); Mean Corpuscular HGB CONC 32.9 g/dL (32.0-36.0); Mean Corpuscular Hemoglobin 34.7 pg (27.0-31.0); Mean Platelet Volume 8.4 fL (7.4-10.4); Platelet Count 605 10x3/uL (130-400); RBC Distribution Width 15.4 % (11.5-14.5); Red Blood Cell (RBC) Count 2.22 mill/uL (4.70-6.10); White Blood Cell (WBC) Count 20.1 10x3/uL (4.8-10.8)
[2022-06-06 03:20] LABS: ALT (SGPT) 22 U/L (8-55); AST (SGOT) 34 U/L (5-34); Albumin 2.1 g/dL (3.4-4.8); Alkaline Phosphatase 127 U/L (40-110); Bilirubin, Direct 6.6 mg/dL (0.1-0.3); Bilirubin, Total 8.5 mg/dL (0.2-1.2); Protein, Total 4.3 g/dL (5.8-8.1)
[2022-06-06 03:21] LABS: Anion Gap 16 mmol/L (10-20); BUN (Urea Nitrogen) 59 mg/dL (8.4-25.7); Calc. Creatinine Clearance 45 mL/min (70-130); Calcium 8.5 mg/dL (7.8-10.44); Carbon Dioxide 21 mmol/L (23-31); Chloride 108 mmol/L (98-107); Estimated GFR 36; Glucose 121 mg/dL (83-110); Magnesium 1.9 mg/dL (1.6-2.6); Phosphorus 5.2 mg/dL (2.3-4.7); Potassium 4.8 mmol/L (3.5-5.1); Sodium 140 mmol/L (136-145)
[2022-06-06 03:31] LABS: Anisocytosis SLIGHT = 6-15 cells (100X) (0-5/hpf); Band 12 % (5-11); Burr Cells SLIGHT = 2-5 cells (100X) (0-1/hpf); Large Platelets SLIGHT; Lymphocytes 5 % (21-51); MDiff Complete? YES; Macrocytosis MODERATE=16-30 cells (100X) (0-5/hpf); Monocytes 4 % (0-10); Neutrophil 79 % (42-75); Ovalocytes SLIGHT = 2-5 cells (100X) (0-1/hpf); Platelet Morphology Comment Appears Increased
[2022-06-06] MEDS ORDERED: Sodium Bicarbonate 100 MEQ in Dextrose 5% in Water 1,000 ML IV SCH ×2 (04:00)
[2022-06-06] MEDS ORDERED: Sodium Chloride 0.9% 1,000 ML IV SCH (05:00)
[2022-06-06 05:28] LABS: INR-International Normal Ratio 1.2; Prothrombin Time 15.2 sec (12.0-14.7)
[2022-06-06 05:29] LABS: PTT 39.6 sec (22.9-36.1)
[2022-06-06] MEDS: Sodium Chloride 0.9% 1,000 ML IV SCH ×3 (05:45→15:34)
[2022-06-06] MEDS: cloNIDine 0.1 MG TAB PO SCH ×4 (05:46→23:57)
[2022-06-06 06:57] LABS: Actual Bicarbonate (HCO3a) 22.4 mEq/L (22-28); Base Excess (BEa) -1.6 mEq/L (-2.0 to +3.0); CO2 Tension 34.4 mmHg (35.0-45.0); Calcium, Ionized (arterial) 1.15 mmol/L (1.12-1.30); Carboxyhemoglobin (COHb) 2.1 gm% (0.0-3.0); Hemoglobin (Hb) 8.2 g/dL (14.0-18.0); Potassium - ABG Lab 4.75 mmol/L (3.70-5.30); pH, Arterial 7.43 (7.35-7.45)
[2022-06-06] MEDS ORDERED: Piperacillin/Tazobactam 3.375 GM in Sodium Chloride 0.9% 100 ML IVPB SCH ×2 (06:57→07:15)
[2022-06-06 07:00] LABS: Puncture Site RRA
[2022-06-06 07:32] LABS: Lactic Acid 1.3 mmol/L (0.5-2.2)
[2022-06-06] MEDS ORDERED: Lidocaine 1% (PF) 30 ML VIAL ONE (07:51)
[2022-06-06] MEDS ORDERED: LYTES IN TPN IVPB PRN (07:53)
[2022-06-06] MEDS: Pantoprazole 40 MG VIAL IVP SCH ×2 (08:41→21:01)
[2022-06-06] MEDS: Nicotine 21 MG PATCH TD SCH ×2 (08:41→10:14)
[2022-06-06] MEDS ORDERED: Pantoprazole 40 MG VIAL IVP SCH (09:00)
[2022-06-06] MEDS ORDERED: Heparin 5,000 UNITS/ML VIAL SC SCH (09:00)
[2022-06-06] MEDS ORDERED: FENTANYL 50 MCG/ML 1 ML VIAL SLOW IVP SCH (09:15)
[2022-06-06] MEDS: Fluticasone Propionate Nasal Spray 16 gm Bottle NASAL SCH (10:13)
[2022-06-06] MEDS: Ferrous Sulfate 325 MG TAB PO SCH ×2 (10:13→20:32)
[2022-06-06] MEDS: Ascorbic Acid 500 mg Chewable Tablet PO SCH ×2 (10:13→20:32)
[2022-06-06] MEDS: Gabapentin 100 MG CAP PO SCH ×3 (10:13→20:32)
[2022-06-06] MEDS: Polyethylene Glycol 3350 17 GM Packet PO SCH (10:14)
[2022-06-06] MEDS: Senokot S 8.6-50 MG TAB PO SCH ×2 (10:14→20:31)
[2022-06-06] MEDS ORDERED: Lidocaine 1% (PF) 30 ML VIAL IJ SCH (10:30)
[2022-06-06] MEDS ORDERED: fentaNYL PF 100 MCG/2 ML SYRINGE ONE (12:05)
[2022-06-06] MEDS: Piperacillin/Tazobactam 3.375 GM in Sodium Chloride 0.9% 100 ML IVPB SCH ×2 (12:05→20:30)
[2022-06-06] MEDS ORDERED: SUGAMMADEX SODIUM 200 MG/2 ML VIAL ONE ×2 (12:06→14:39)
[2022-06-06] MEDS ORDERED: Famotidine/PF 20 mg/2ml Vial ONE (12:06)
[2022-06-06] MEDS ORDERED: Rocuronium Bromide 10 MG/ML (10ML VIAL) ONE (13:08)
[2022-06-06] MEDS ORDERED: ePHEDrine 50 MG/ML VIAL ONE (13:08)
[2022-06-06] MEDS ORDERED: Dexamethasone 20 MG/5 ML VIAL ONE (13:08)
[2022-06-06] MEDS ORDERED: Ondansetron PF 4 MG/2 ML Vial ONE (13:08)
[2022-06-06] MEDS ORDERED: PROPOFOL 200 MG/20 ML VIAL ONE (13:08)
[2022-06-06] MEDS ORDERED: PHENYLEPHRINE-NS 100 MCG/ML 10 ML SYRINGE ONE (13:08)
[2022-06-06] MEDS ORDERED: Bupivacaine/Epinephrine 0.25% 30 ML VIAL ONE (13:30)
[2022-06-06] MEDS ORDERED: POTASSIUM ACETATE IV SCH (14:00)
[2022-06-06] MEDS ORDERED: [UNRECOGNIZED DRUG - OTHER] IV SCH (14:00)
[2022-06-06] MEDS ORDERED: CALCIUM GLUCONATE IV SCH (14:00)
[2022-06-06] MEDS ORDERED: SODIUM ACETATE IV SCH (14:00)
[2022-06-06] MEDS: Morphine 4 MG/ML VIAL SLOW IVP PRN (16:31)
[2022-06-06] MEDS: Insulin Regular 300 UNITS/3 ML VIAL SC PRN ×2 (18:16→23:54)
[2022-06-06] MEDS: Tamsulosin HCl 0.4 MG CAP PO SCH (20:31)
[2022-06-06] MEDS: Heparin 5,000 UNITS/ML VIAL SC SCH ×2 (20:31→20:33)
[2022-06-06] MEDS: Atorvastatin Calcium 20 MG TAB PO SCH (20:33)
[2022-06-06] MEDS: Cyclobenzaprine 10 MG TAB PO PRN (20:33)
[2022-06-07] MEDS: Morphine 4 MG/ML VIAL SLOW IVP PRN ×4 (00:47→21:14)
[2022-06-07] MEDS: Piperacillin/Tazobactam 3.375 GM in Sodium Chloride 0.9% 100 ML IVPB SCH ×3 (03:59→20:13)
[2022-06-07 04:17] LABS: ALT (SGPT) 25 U/L (8-55); AST (SGOT) 48 U/L (5-34); Albumin 1.9 g/dL (3.4-4.8); Alkaline Phosphatase 100 U/L (40-110); Bilirubin, Total 8.1 mg/dL (0.2-1.2)
[2022-06-07 04:22] LABS: Band 43 % (5-11); Hemoglobin 7.4 g/dL (14.0-18.0); Hypochromia SLIGHT = 6-15 cells (100X) (0-5/hpf); Lymphocytes 5 % (21-51); MDiff Complete? YES; Macrocytosis SLIGHT = 6-15 cells (100X) (0-5/hpf); Mean Corpuscular HGB CONC 31.2 g/dL (32.0-36.0); Mean Corpuscular Hemoglobin 32.2 pg (27.0-31.0); Mean Platelet Volume 8.3 fL (7.4-10.4); Neutrophil 52 % (42-75); Nucleated RBC 1 % (0); Platelet Count 686 10x3/uL (130-400); Platelet Morphology Comment Appears Increased; RBC Distribution Width 16.4 % (11.5-14.5); Red Blood Cell (RBC) Count 2.29 mill/uL (4.70-6.10); White Blood Cell (WBC) Count 12.1 10x3/uL (4.8-10.8)
[2022-06-07 04:31] LABS: Anion Gap 12 mmol/L (10-20); BUN (Urea Nitrogen) 60 mg/dL (8.4-25.7); Calc. Creatinine Clearance 46 mL/min (70-130); Calcium 8.6 mg/dL (7.8-10.44); Carbon Dioxide 22 mmol/L (23-31); Chloride 113 mmol/L (98-107); Estimated GFR 37; Glucose 251 mg/dL (83-110); Magnesium 2.3 mg/dL (1.6-2.6); Phosphorus 3.2 mg/dL (2.3-4.7); Potassium 4.1 mmol/L (3.5-5.1); Sodium 143 mmol/L (136-145)
[2022-06-07] MEDS: cloNIDine 0.1 MG TAB PO SCH ×4 (06:03→23:42)
[2022-06-07] MEDS: Cyclobenzaprine 10 MG TAB PO PRN (06:05)
[2022-06-07] MEDS: Insulin Regular 300 UNITS/3 ML VIAL SC PRN ×3 (06:18→18:06)
[2022-06-07] MEDS ORDERED: Sodium Phosphate 15 MMOL in Sodium Chloride 0.9% 250 ML 250 ML IVPB SCH (07:45)
[2022-06-07] MEDS ORDERED: Enoxaparin Sodium 40 MG/0.4 ML SYRINGE SC SCH (09:00)
[2022-06-07] MEDS ORDERED: Lidocaine 1% (PF) 30 ML VIAL ONE (09:34)
[2022-06-07] MEDS ORDERED: FENTANYL 50 MCG/ML 1 ML VIAL SLOW IVP SCH ×2 (10:00)
[2022-06-07] MEDS: Gabapentin 100 MG CAP PO SCH ×3 (10:28→20:40)
[2022-06-07] MEDS: Ascorbic Acid 500 mg Chewable Tablet PO SCH ×2 (10:28→20:43)
[2022-06-07] MEDS: Fluticasone Propionate Nasal Spray 16 gm Bottle NASAL SCH (10:28)
[2022-06-07] MEDS: Ferrous Sulfate 325 MG TAB PO SCH ×2 (10:28→20:43)
[2022-06-07] MEDS: Polyethylene Glycol 3350 17 GM Packet PO SCH (10:29)
[2022-06-07] MEDS: Heparin 5,000 UNITS/ML VIAL SC SCH ×3 (10:29→20:45)
[2022-06-07] MEDS: Pantoprazole 40 MG VIAL IVP SCH ×2 (10:29→20:14)
[2022-06-07] MEDS: Nicotine 21 MG PATCH TD SCH (10:32)
[2022-06-07] MEDS: Senokot S 8.6-50 MG TAB PO SCH ×2 (10:33→20:42)
[2022-06-07 11:20] LABS: Bilirubin 2+ (Negative); Blood, Urine 1+ (Negative); Clarity Turbid (Clear); Glucose, Urine (Dipstick) 300 mg/dL (Negative); Ketone, Urine Negative (Negative); Leukocyte Negative Leu/uL (Negative); Nitrite Negative (Negative); Protein, Urine (Dipstick) 20 mg/dL (Neg-Trace); RBC/HPF 0-3 HPF (0-3); Specific Gravity, Urine 1.021 (1.002-1.036); Squamous Epithelial 0-3 HPF (0-3); WBC/HPF 0-3 HPF (0-3)
[2022-06-07 11:22] LABS: Bacteria/HPF 1+ HPF (None Seen)
[2022-06-07 11:24] LABS: Urine Culture Reflex Yes Yes
[2022-06-07] MEDS ORDERED: CALCIUM GLUCONATE IV SCH (14:00)
[2022-06-07] MEDS ORDERED: SODIUM ACETATE IV SCH (14:00)
[2022-06-07] MEDS ORDERED: [UNRECOGNIZED DRUG - OTHER] IV SCH (14:00)
[2022-06-07] MEDS ORDERED: POTASSIUM ACETATE IV SCH (14:00)
[2022-06-07] MEDS: Sodium Chloride 0.9% 1,000 ML IV SCH (14:55)
[2022-06-07] MEDS: Atorvastatin Calcium 20 MG TAB PO SCH (20:39)
[2022-06-07] MEDS: Tamsulosin HCl 0.4 MG CAP PO SCH (20:42)
[2022-06-07] MEDS ORDERED: Haloperidol Lactate 5 MG/ML VIAL SLOW IVP SCH (23:30)
[2022-06-08] MEDS: Insulin Regular 300 UNITS/3 ML VIAL SC PRN ×2 (01:02→16:49)
[2022-06-08] MEDS: Morphine 4 MG/ML VIAL SLOW IVP PRN ×2 (01:09→08:54)
[2022-06-08 04:26] LABS: Anion Gap 12 mmol/L (10-20); BUN (Urea Nitrogen) 47 mg/dL (8.4-25.7); Calc. Creatinine Clearance 67 mL/min (70-130); Calcium 8.8 mg/dL (7.8-10.44); Carbon Dioxide 20 mmol/L (23-31); Chloride 118 mmol/L (98-107); Estimated GFR 58; Glucose 182 mg/dL (83-110); Magnesium 2.2 mg/dL (1.6-2.6); Phosphorus 2.4 mg/dL (2.3-4.7); Potassium 4.4 mmol/L (3.5-5.1); Sodium 146 mmol/L (136-145)
[2022-06-08 04:39] LABS: Anisocytosis SLIGHT = 6-15 cells (100X) (0-5/hpf); Band 44 % (5-11); Burr Cells SLIGHT = 2-5 cells (100X) (0-1/hpf); Hemoglobin 10.2 g/dL (14.0-18.0); Large Platelets SLIGHT; Lymphocytes 5 % (21-51); MDiff Complete? YES; Macrocytosis SLIGHT = 6-15 cells (100X) (0-5/hpf); Mean Corpuscular HGB CONC 33.3 g/dL (32.0-36.0); Mean Corpuscular Hemoglobin 33.9 pg (27.0-31.0); Metamyelocyte 1 % (0-0); Monocytes 3 % (0-10); Neutrophil 47 % (42-75); Nucleated RBC 1 % (0); Platelet Count 495 10x3/uL (130-400); Platelet Morphology Comment Appears Decreased; Target Cells SLIGHT = 2-5 cells (100X) (0-1/hpf); White Blood Cell (WBC) Count 12.2 10x3/uL (4.8-10.8)
[2022-06-08] MEDS: Piperacillin/Tazobactam 3.375 GM in Sodium Chloride 0.9% 100 ML IVPB SCH ×3 (04:47→19:41)
[2022-06-08] MEDS: cloNIDine 0.1 MG TAB PO SCH ×4 (05:53→23:11)
[2022-06-08] MEDS ORDERED: Lidocaine 1% (PF) 30 ML VIAL SC SCH (07:45)
[2022-06-08] MEDS ORDERED: Midazolam HCl 2 mg/2 ml Vial SLOW IVP PRN (09:05)
[2022-06-08] MEDS ORDERED: DISCONTINUE PREVIOUS NARCOTIC PAIN MEDICATIONS AND BENZODIAZEPINES FS SCH (09:15)
[2022-06-08] MEDS ORDERED: Morphine 4 MG/ML VIAL SLOW IVP PRN (09:15)
[2022-06-08] MEDS ORDERED: Propofol BOLUS 1,000 MG/100 ML VIAL IV PRN (09:15)
[2022-06-08] MEDS ORDERED: Fentanyl BOLUS 250 ML IVPB PRN (09:15)
[2022-06-08] MEDS: FENTANYL 50 MCG/ML 1 ML VIAL SLOW IVP SCH ×3 (09:38→15:48)
[2022-06-08] MEDS ORDERED: Fentanyl CADD 100 ML ONE (09:43)
[2022-06-08] MEDS: Fentanyl CADD 100 ML IV SCH (09:52)
[2022-06-08] MEDS: Propofol 1,000 MG/100 ML VIAL IV PRN ×2 (09:52→21:09)
[2022-06-08] MEDS: Fluticasone Propionate Nasal Spray 16 gm Bottle NASAL SCH (12:43)
[2022-06-08] MEDS: Gabapentin 100 MG CAP PO SCH ×3 (13:53→21:08)
[2022-06-08] MEDS: Scopolamine 1.5 mg/72 hour Patch TD SCH (13:54)
[2022-06-08] MEDS: Senokot S 8.6-50 MG TAB PO SCH ×2 (13:55→21:09)
[2022-06-08] MEDS: Ascorbic Acid 500 mg Chewable Tablet PO SCH ×2 (13:55→21:08)
[2022-06-08] MEDS: Polyethylene Glycol 3350 17 GM Packet PO SCH (13:55)
[2022-06-08] MEDS: Pantoprazole 40 MG VIAL IVP SCH ×2 (13:56→21:09)
[2022-06-08] MEDS: Ferrous Sulfate 325 MG TAB PO SCH ×2 (13:56→21:08)
[2022-06-08] MEDS: Nicotine 21 MG PATCH TD SCH (13:56)
[2022-06-08] MEDS ORDERED: [UNRECOGNIZED DRUG - OTHER] IV SCH (14:00)
[2022-06-08] MEDS ORDERED: CALCIUM GLUCONATE IV SCH (14:00)
[2022-06-08] MEDS ORDERED: POTASSIUM PHOSPHATE IV SCH (14:00)
[2022-06-08] MEDS ORDERED: SODIUM ACETATE IV SCH (14:00)
[2022-06-08] MEDS: Heparin 5,000 UNITS/ML VIAL SC SCH ×3 (14:11→21:08)
[2022-06-08] MEDS: Sodium Chloride 0.9% 1,000 ML IV SCH (14:36)
[2022-06-08] MEDS ORDERED: Succinylcholine Chloride 200 MG/10 ML VIAL IV SCH (15:15)
[2022-06-08] MEDS ORDERED: Midazolam HCl 2 mg/2 ml Vial IVP SCH (15:15)
[2022-06-08] MEDS: Acetaminophen 500 MG TAB PO SCH ×2 (16:48→23:05)
[2022-06-08] MEDS: Atorvastatin Calcium 20 MG TAB PO SCH (21:08)
[2022-06-08] MEDS: Tamsulosin HCl 0.4 MG CAP PO SCH (21:09)
[2022-06-09] MEDS: Insulin Regular 300 UNITS/3 ML VIAL SC PRN ×4 (00:18→22:54)
[2022-06-09] MEDS ORDERED: Fentanyl CADD 100 ML ONE (04:02)
[2022-06-09] MEDS: Fentanyl CADD 100 ML IV SCH (04:09)
[2022-06-09] MEDS: Piperacillin/Tazobactam 3.375 GM in Sodium Chloride 0.9% 100 ML IVPB SCH ×3 (04:09→20:29)
[2022-06-09] MEDS: Acetaminophen 500 MG TAB PO SCH ×4 (05:24→22:55)
[2022-06-09 05:42] LABS: ALT (SGPT) 59 U/L (8-55); AST (SGOT) 54 U/L (5-34); Albumin 1.7 g/dL (3.4-4.8); Alkaline Phosphatase 115 U/L (40-110); Anion Gap 9 mmol/L (10-20); BUN (Urea Nitrogen) 51 mg/dL (8.4-25.7); Bilirubin, Total 7.5 mg/dL (0.2-1.2); Calc. Creatinine Clearance 51 mL/min (70-130); Calcium 8.4 mg/dL (7.8-10.44); Carbon Dioxide 25 mmol/L (23-31); Chloride 114 mmol/L (98-107); Estimated GFR 46; Globulin 3.2 g/dL (2.4-3.5); Glucose 253 mg/dL (83-110); Magnesium 2.2 mg/dL (1.6-2.6); Phosphorus 3.7 mg/dL (2.3-4.7); Potassium 3.7 mmol/L (3.5-5.1); Protein, Total 4.9 g/dL (5.8-8.1); Sodium 144 mmol/L (136-145)
[2022-06-09 05:52] LABS: Band 30 % (5-11); Eosinophils 1 % (0-10); Hemoglobin 8.3 g/dL (14.0-18.0); Hypochromia SLIGHT = 6-15 cells (100X) (0-5/hpf); Lymphocytes 4 % (21-51); MDiff Complete? YES; Mean Corpuscular HGB CONC 30.8 g/dL (32.0-36.0); Mean Corpuscular Hemoglobin 31.3 pg (27.0-31.0); Mean Platelet Volume 8.6 fL (7.4-10.4); Monocytes 12 % (0-10); Neutrophil 53 % (42-75); Platelet Count 639 10x3/uL (130-400); Platelet Morphology Comment Appears Increased; RBC Distribution Width 15.9 % (11.5-14.5); Red Blood Cell (RBC) Count 2.64 mill/uL (4.70-6.10); White Blood Cell (WBC) Count 13.8 10x3/uL (4.8-10.8)
[2022-06-09] MEDS: cloNIDine 0.1 MG TAB PO SCH ×2 (06:04→14:36)
[2022-06-09] MEDS ORDERED: Lactated Ringer's 1,000 ML IV SCH ×2 (07:30→16:05)
[2022-06-09 08:24] LABS: Actual Bicarbonate (HCO3a) 20.4 mEq/L (22-28); Base Excess (BEa) -2.7 mEq/L (-2.0 to +3.0); CO2 Tension 28.9 mmHg (35.0-45.0); Calcium, Ionized (arterial) 1.22 mmol/L (1.12-1.30); Carboxyhemoglobin (COHb) 0.8 gm% (0.0-3.0); Hemoglobin (Hb) 8.7 g/dL (14.0-18.0); O2 Tension (PaO2), arterial 89.5 mmHg (> 70.0); Potassium - ABG Lab 3.64 mmol/L (3.70-5.30); pH, Arterial 7.47 (7.35-7.45)
[2022-06-09 08:27] LABS: ALV-art Gradient 159.575 mmHg (0-20); Puncture Site LBA
[2022-06-09] MEDS: Pantoprazole 40 MG VIAL IVP SCH ×2 (08:54→20:30)
[2022-06-09] MEDS: Fluticasone Propionate Nasal Spray 16 gm Bottle NASAL SCH (08:59)
[2022-06-09] MEDS: Ascorbic Acid 500 mg Chewable Tablet PO SCH (08:59)
[2022-06-09] MEDS: Ferrous Sulfate 325 MG TAB PO SCH (08:59)
[2022-06-09] MEDS: Polyethylene Glycol 3350 17 GM Packet PO SCH (09:00)
[2022-06-09] MEDS: Heparin 5,000 UNITS/ML VIAL SC SCH ×3 (09:00→20:29)
[2022-06-09] MEDS: Gabapentin 100 MG CAP PO SCH ×3 (09:00→20:29)
[2022-06-09] MEDS: Senokot S 8.6-50 MG TAB PO SCH ×2 (09:00→20:29)
[2022-06-09] MEDS: Nicotine 21 MG PATCH TD SCH (09:00)
[2022-06-09] MEDS ORDERED: Rocuronium Bromide 50 MG/5 ML VIAL ONE ×2 (09:54→13:35)
[2022-06-09] MEDS ORDERED: fentaNYL PF 100 MCG/2 ML SYRINGE ONE (09:54)
[2022-06-09] MEDS ORDERED: Midazolam HCl 5 mg/5 ml Vial ONE (09:54)
[2022-06-09] MEDS ORDERED: Rocuronium Bromide 10 MG/ML (10ML VIAL) ONE (11:32)
[2022-06-09] MEDS ORDERED: Calcium Chloride 1 GM/10 ML Abboject SYRINGE ONE (11:32)
[2022-06-09] MEDS ORDERED: Dexamethasone 20 MG/5 ML VIAL ONE (11:32)
[2022-06-09] MEDS ORDERED: Albumin 25% 200 ML ONE (13:20)
[2022-06-09] MEDS ORDERED: [UNRECOGNIZED DRUG - OTHER] IV SCH ×2 (14:00→17:00)
[2022-06-09] MEDS ORDERED: CALCIUM GLUCONATE IV SCH ×2 (14:00→17:00)
[2022-06-09] MEDS ORDERED: SODIUM ACETATE IV SCH ×2 (14:00→17:00)
[2022-06-09] MEDS ORDERED: POTASSIUM PHOSPHATE IV SCH ×2 (14:00→17:00)
[2022-06-09] MEDS: Propofol 1,000 MG/100 ML VIAL IV PRN (16:00)
[2022-06-09] MEDS: Sodium Chloride 0.9% 1,000 ML IV SCH ×2 (16:12→17:27)
[2022-06-09 16:38] LABS: Hemoglobin 10.5 g/dL (14.0-18.0); Mean Corpuscular Hemoglobin 31.7 pg (27.0-31.0); Mean Corpuscular Volume 99.1 fl (78.0-98.0); Mean Platelet Volume 8.7 fL (7.4-10.4); Platelet Count 543 10x3/uL (130-400); RBC Distribution Width 16.5 % (11.5-14.5)
[2022-06-09 16:45] LABS: Actual Bicarbonate (HCO3a) 19.7 mEq/L (22-28); CO2 Tension 31.5 mmHg (35.0-45.0); Calcium, Ionized (arterial) 1.22 mmol/L (1.12-1.30); Carboxyhemoglobin (COHb) 1.4 gm% (0.0-3.0); Hemoglobin (Hb) 11.1 g/dL (14.0-18.0); Potassium - ABG Lab 4.53 mmol/L (3.70-5.30); pH, Arterial 7.42 (7.35-7.45)
[2022-06-09] MEDS ORDERED: Dexmedetomidine In 0.9 % NaCl 100 ML IVPB SCH (16:45)
[2022-06-09 16:46] LABS: ALV-art Gradient 191.025 mmHg (0-20); O2 Tension (PaO2), arterial 54.8 mmHg (> 70.0); Puncture Site Arterial Line
[2022-06-09 16:52] LABS: Lactic Acid 1.3 mmol/L (0.5-2.2)
[2022-06-09 16:54] LABS: Anion Gap 11 mmol/L (10-20); BUN (Urea Nitrogen) 48 mg/dL (8.4-25.7); Calc. Creatinine Clearance 56 mL/min (70-130); Calcium 8.3 mg/dL (7.8-10.44); Carbon Dioxide 21 mmol/L (23-31); Chloride 117 mmol/L (98-107); Estimated GFR 52; Glucose 263 mg/dL (83-110); Potassium 4.6 mmol/L (3.5-5.1); Sodium 144 mmol/L (136-145)
[2022-06-09 17:00] LABS: Phosphorus 4.8 mg/dL (2.3-4.7)
[2022-06-09 17:05] LABS: Band 21 % (5-11); Lymphocytes 3 % (21-51); MDiff Complete? YES; Myelocyte 1 % (0-0); Neutrophil 75 % (42-75); Nucleated RBC 3 % (0); Platelet Morphology Comment Appears Increased; Polychromasia SLIGHT = 2-3 cells (100X) (0-2/hpf); Target Cells SLIGHT = 2-5 cells (100X) (0-1/hpf); White Blood Cell (WBC) Count 13.7 10x3/uL (4.8-10.8)
[2022-06-10] MEDS: Fentanyl CADD 100 ML IV SCH (03:53)
[2022-06-10] MEDS: Piperacillin/Tazobactam 3.375 GM in Sodium Chloride 0.9% 100 ML IVPB SCH ×3 (04:11→21:21)
[2022-06-10 04:55] LABS: INR-International Normal Ratio 1.3; Prothrombin Time 16.8 sec (12.0-14.7)
[2022-06-10 04:56] LABS: PTT 39.2 sec (22.9-36.1)
[2022-06-10 05:14] LABS: Phosphorus 3.6 mg/dL (2.3-4.7)
[2022-06-10 05:19] LABS: Anion Gap 9 mmol/L (10-20); BUN (Urea Nitrogen) 52 mg/dL (8.4-25.7); Calc. Creatinine Clearance 56 mL/min (70-130); Calcium 8.2 mg/dL (7.8-10.44); Carbon Dioxide 21 mmol/L (23-31); Chloride 115 mmol/L (98-107); Estimated GFR 52; Glucose 330 mg/dL (83-110); Magnesium 2.1 mg/dL (1.6-2.6); Potassium 4.4 mmol/L (3.5-5.1); Sodium 141 mmol/L (136-145)
[2022-06-10] MEDS: Insulin Regular 300 UNITS/3 ML VIAL SC PRN ×2 (05:35→10:01)
[2022-06-10 05:53] LABS: Band 44 % (5-11); Lymphocytes 9 % (21-51); MDiff Complete? YES; Mean Corpuscular HGB CONC 31.6 g/dL (32.0-36.0); Mean Corpuscular Hemoglobin 31.3 pg (27.0-31.0); Monocytes 3 % (0-10); Neutrophil 44 % (42-75); Platelet Count 493 10x3/uL (130-400); RBC Distribution Width 16.6 % (11.5-14.5); Red Blood Cell (RBC) Count 2.88 mill/uL (4.70-6.10); White Blood Cell (WBC) Count 12.9 10x3/uL (4.8-10.8)
[2022-06-10] MEDS: Acetaminophen 500 MG TAB PO SCH ×2 (06:41→12:13)
[2022-06-10 08:14] LABS: Actual Bicarbonate (HCO3a) 19.9 mEq/L (22-28); Base Excess (BEa) -3.8 mEq/L (-2.0 to +3.0); CO2 Tension 31.8 mmHg (35.0-45.0); Calcium, Ionized (arterial) 1.18 mmol/L (1.12-1.30); Carboxyhemoglobin (COHb) 0.5 gm% (0.0-3.0); O2 Tension (PaO2), arterial 87.8 mmHg (> 70.0); Potassium - ABG Lab 3.93 mmol/L (3.70-5.30); pH, Arterial 7.42 (7.35-7.45)
[2022-06-10 08:17] LABS: Puncture Site Arterial Line
[2022-06-10] MEDS: Polyethylene Glycol 3350 17 GM Packet PO SCH (08:35)
[2022-06-10] MEDS: Pantoprazole 40 MG VIAL IVP SCH ×2 (08:35→21:22)
[2022-06-10] MEDS: Heparin 5,000 UNITS/ML VIAL SC SCH ×3 (08:35→21:22)
[2022-06-10] MEDS: Gabapentin 100 MG CAP PO SCH ×3 (08:36→21:22)
[2022-06-10] MEDS: Senokot S 8.6-50 MG TAB PO SCH ×2 (08:36→21:22)
[2022-06-10] MEDS ORDERED: Acetaminophen 650 MG/20.3 ML UDCUP PO SCH (12:15)
[2022-06-10] MEDS: HUMULIN R 100 UNITS in Sodium Chloride 0.9% 100 ML IVPB SCH (12:33)
[2022-06-10] MEDS ORDERED: [UNRECOGNIZED DRUG - OTHER] IV SCH (14:00)
[2022-06-10] MEDS ORDERED: CALCIUM GLUCONATE IV SCH (14:00)
[2022-06-10] MEDS ORDERED: POTASSIUM PHOSPHATE IV SCH (14:00)
[2022-06-10] MEDS ORDERED: SODIUM ACETATE IV SCH (14:00)
[2022-06-10] MEDS: Sodium Chloride 0.9% 1,000 ML IV SCH (15:35)
[2022-06-10] MEDS: Acetaminophen 650 MG/20.3 ML UDCUP PO SCH (18:08)
[2022-06-11] MEDS: Acetaminophen 650 MG/20.3 ML UDCUP PO SCH ×4 (00:03→17:08)
[2022-06-11] MEDS: Piperacillin/Tazobactam 3.375 GM in Sodium Chloride 0.9% 100 ML IVPB SCH ×3 (04:21→20:48)
[2022-06-11 05:31] LABS: ALT (SGPT) 48 U/L (8-55); AST (SGOT) 56 U/L (5-34); Albumin 1.6 g/dL (3.4-4.8); Alkaline Phosphatase 161 U/L (40-110); Anion Gap 7 mmol/L (10-20); BUN (Urea Nitrogen) 48 mg/dL (8.4-25.7); Bilirubin, Total 4.4 mg/dL (0.2-1.2); Calc. Creatinine Clearance 76 mL/min (70-130); Calcium 8.3 mg/dL (7.8-10.44); Carbon Dioxide 21 mmol/L (23-31); Chloride 116 mmol/L (98-107); Estimated GFR 69; Globulin 3.2 g/dL (2.4-3.5); Glucose 147 mg/dL (83-110); Phosphorus 2.2 mg/dL (2.3-4.7); Potassium 3.6 mmol/L (3.5-5.1); Protein, Total 4.8 g/dL (5.8-8.1); Sodium 140 mmol/L (136-145)
[2022-06-11] MEDS: Fentanyl CADD 100 ML IV SCH (05:39)
[2022-06-11 05:42] LABS: Band 20 % (5-11); Eosinophils 1 % (0-10); Hemoglobin 9.6 g/dL (14.0-18.0); Lymphocytes 5 % (21-51); MDiff Complete? YES; Mean Corpuscular HGB CONC 31.3 g/dL (32.0-36.0); Mean Corpuscular Hemoglobin 31.2 pg (27.0-31.0); Mean Corpuscular Volume 99.7 fl (78.0-98.0); Mean Platelet Volume 9.1 fL (7.4-10.4); Monocytes 4 % (0-10); Myelocyte 3 % (0-0); Neutrophil 67 % (42-75); Nucleated RBC 1 % (0); Platelet Count 497 10x3/uL (130-400); Platelet Morphology Comment Appears Increased; RBC Distribution Width 16.5 % (11.5-14.5); Red Blood Cell (RBC) Count 3.09 mill/uL (4.70-6.10); Toxic Granulation SLIGHT; White Blood Cell (WBC) Count 12.5 10x3/uL (4.8-10.8)
[2022-06-11] MEDS ORDERED: Potassium Phosphate 30 MMOL in Sodium Chloride 0.9% 250 ML 250 ML IVPB SCH (09:00)
[2022-06-11] MEDS: Heparin 5,000 UNITS/ML VIAL SC SCH ×3 (09:25→20:48)
[2022-06-11] MEDS: Gabapentin 100 MG CAP PO SCH ×3 (09:26→20:48)
[2022-06-11] MEDS: Pantoprazole 40 MG VIAL IVP SCH ×2 (09:26→20:48)
[2022-06-11] MEDS: Polyethylene Glycol 3350 17 GM Packet PO SCH (11:25)
[2022-06-11] MEDS: Senokot S 8.6-50 MG TAB PO SCH ×2 (11:26→20:49)
[2022-06-11] MEDS: HUMULIN R 100 UNITS in Sodium Chloride 0.9% 100 ML IVPB SCH (11:55)
[2022-06-11] MEDS ORDERED: Midazolam HCl 2 mg/2 ml Vial IVP SCH (13:45)
[2022-06-11] MEDS ORDERED: CALCIUM GLUCONATE IV SCH (14:00)
[2022-06-11] MEDS ORDERED: POTASSIUM PHOSPHATE IV SCH (14:00)
[2022-06-11] MEDS ORDERED: [UNRECOGNIZED DRUG - OTHER] IV SCH (14:00)
[2022-06-11] MEDS ORDERED: SODIUM ACETATE IV SCH (14:00)
[2022-06-11] MEDS: Sodium Chloride 0.9% 1,000 ML IV SCH (15:31)
[2022-06-11] MEDS ORDERED: Dextrose 5% in Water 1,000 ML IV PRN (17:45)
[2022-06-11] MEDS ORDERED: Dextrose 50% Abboject 50 ML SYRINGE IVP PRN (17:45)
[2022-06-11] MEDS: Insulin Regular 300 UNITS/3 ML VIAL SC PRN (21:08)
[2022-06-12] MEDS: Acetaminophen 650 MG/20.3 ML UDCUP PO SCH ×4 (00:05→20:47)
[2022-06-12] MEDS: Insulin Regular 300 UNITS/3 ML VIAL SC PRN ×4 (00:20→16:43)
[2022-06-12] MEDS: Piperacillin/Tazobactam 3.375 GM in Sodium Chloride 0.9% 100 ML IVPB SCH ×3 (04:04→20:46)
[2022-06-12 04:50] LABS: ALT (SGPT) 63 U/L (8-55); AST (SGOT) 51 U/L (5-34); Albumin 1.6 g/dL (3.4-4.8); Alkaline Phosphatase 182 U/L (40-110); Anion Gap 9 mmol/L (10-20); BUN (Urea Nitrogen) 58 mg/dL (8.4-25.7); Bilirubin, Total 2.9 mg/dL (0.2-1.2); Calc. Creatinine Clearance 63 mL/min (70-130); Carbon Dioxide 22 mmol/L (23-31); Chloride 116 mmol/L (98-107); Estimated GFR 55; Globulin 3.3 g/dL (2.4-3.5); Glucose 196 mg/dL (83-110); Magnesium 2.1 mg/dL (1.6-2.6); Phosphorus 3.4 mg/dL (2.3-4.7); Potassium 3.9 mmol/L (3.5-5.1); Protein, Total 4.9 g/dL (5.8-8.1); Sodium 143 mmol/L (136-145)
[2022-06-12 05:45] LABS: Band 25 % (5-11); Hemoglobin 8.7 g/dL (14.0-18.0); Lymphocytes 8 % (21-51); MDiff Complete? YES; Mean Corpuscular HGB CONC 31.7 g/dL (32.0-36.0); Mean Corpuscular Hemoglobin 31.5 pg (27.0-31.0); Mean Corpuscular Volume 99.5 fl (78.0-98.0); Mean Platelet Volume 9.1 fL (7.4-10.4); Monocytes 1 % (0-10); Neutrophil 66 % (42-75); Platelet Count 455 10x3/uL (130-400); RBC Distribution Width 16.1 % (11.5-14.5); Red Blood Cell (RBC) Count 2.75 mill/uL (4.70-6.10); White Blood Cell (WBC) Count 15.9 10x3/uL (4.8-10.8)
[2022-06-12] MEDS: Senokot S 8.6-50 MG TAB PO SCH ×2 (09:42→20:49)
[2022-06-12] MEDS: Polyethylene Glycol 3350 17 GM Packet PO SCH (09:42)
[2022-06-12] MEDS: Gabapentin 100 MG CAP PO SCH ×3 (09:44→20:47)
[2022-06-12] MEDS: Heparin 5,000 UNITS/ML VIAL SC SCH ×3 (09:45→20:48)
[2022-06-12] MEDS: Pantoprazole 40 MG VIAL IVP SCH ×2 (09:45→20:48)
[2022-06-12] MEDS: Fentanyl CADD 100 ML IV SCH (11:26)
[2022-06-13] MEDS: Acetaminophen 650 MG/20.3 ML UDCUP PO SCH ×2 (00:22→05:45)
[2022-06-13] MEDS: Insulin Regular 300 UNITS/3 ML VIAL SC PRN ×4 (00:23→20:03)
[2022-06-13] MEDS: Piperacillin/Tazobactam 3.375 GM in Sodium Chloride 0.9% 100 ML IVPB SCH (03:37)
[2022-06-13 05:17] LABS: Band 17 % (5-11); Eosinophils 2 % (0-10); Hemoglobin 8.3 g/dL (14.0-18.0); Lymphocytes 8 % (21-51); MDiff Complete? YES; Mean Corpuscular HGB CONC 31.5 g/dL (32.0-36.0); Mean Corpuscular Hemoglobin 31.5 pg (27.0-31.0); Mean Platelet Volume 9.3 fL (7.4-10.4); Monocytes 4 % (0-10); Myelocyte 1 % (0-0); Neutrophil 68 % (42-75); Platelet Count 464 10x3/uL (130-400); Red Blood Cell (RBC) Count 2.63 mill/uL (4.70-6.10); White Blood Cell (WBC) Count 14.6 10x3/uL (4.8-10.8)
[2022-06-13 05:34] LABS: Anion Gap 9 mmol/L (10-20); BUN (Urea Nitrogen) 53 mg/dL (8.4-25.7); Calc. Creatinine Clearance 66 mL/min (70-130); Calcium 8.1 mg/dL (7.8-10.44); Carbon Dioxide 22 mmol/L (23-31); Chloride 119 mmol/L (98-107); Estimated GFR 58; Glucose 196 mg/dL (83-110); Magnesium 2.1 mg/dL (1.6-2.6); Phosphorus 2.6 mg/dL (2.3-4.7); Potassium 3.8 mmol/L (3.5-5.1); Sodium 146 mmol/L (136-145)
[2022-06-13] MEDS ORDERED: Meropenem 1 GM in Sodium Chloride 0.9% 100 ML IVPB SCH (08:45)
[2022-06-13] MEDS ORDERED: Potassium Phosphate 15 MMOL in Sodium Chloride 0.9% 250 ML 250 ML IVPB SCH (08:45)
[2022-06-13] MEDS ORDERED: Potassium Phosphate 30 MMOL in Sodium Chloride 0.9% 250 ML 250 ML IVPB SCH (09:30)
[2022-06-13] MEDS: Gabapentin 100 MG CAP PO SCH ×3 (09:35→20:02)
[2022-06-13] MEDS: Pantoprazole 40 MG VIAL IVP SCH ×2 (09:36→20:03)
[2022-06-13] MEDS: Heparin 5,000 UNITS/ML VIAL SC SCH ×3 (09:37→20:03)
[2022-06-13] MEDS: Saccharomyces boulardii 250 MG CAP PO SCH (09:38)
[2022-06-13] MEDS: Polyethylene Glycol 3350 17 GM Packet PO SCH (09:38)
[2022-06-13] MEDS: Senokot S 8.6-50 MG TAB PO SCH ×2 (09:38→20:02)
[2022-06-13] MEDS: Acetaminophen/Codeine 30-300mg Tablet PO SCH ×2 (10:59→17:37)
[2022-06-13] MEDS: Acetaminophen 325 MG TAB PO SCH ×2 (11:00→17:36)
[2022-06-13] MEDS: Acetaminophen/Codeine 30-300mg Tablet PO PRN (13:25)
[2022-06-13 15:17] LABS: Actual Bicarbonate (HCO3a) 22.7 mEq/L (22-28); Analyzer IN Cardio OR; Base Excess (BEa) -3.1 mEq/L (-2.0 to +3.0); CO2 Tension 43.9 mmHg (35.0-45.0); Calcium, Ionized (arterial) 1.19 mmol/L (1.12-1.30); Carboxyhemoglobin (COHb) 1.1 gm% (0.0-3.0); Hemoglobin (Hb) 8.1 g/dL (14.0-18.0); O2 Tension (PaO2), arterial 107.6 mmHg (> 70.0); Potassium - ABG Lab 3.75 mmol/L (3.70-5.30); Puncture Site Arterial Line; pH, Arterial 7.33 (7.35-7.45)
[2022-06-13 15:17] LABS: Analyzer IN Cardio OR; Base Excess (BEa) -4.5 mEq/L (-2.0 to +3.0); CO2 Tension 47.2 mmHg (35.0-45.0); Calcium, Ionized (arterial) 1.27 mmol/L (1.12-1.30); Carboxyhemoglobin (COHb) 1.1 gm% (0.0-3.0); Hemoglobin (Hb) 8.8 g/dL (14.0-18.0); O2 Tension (PaO2), arterial 74.2 mmHg (> 70.0); Potassium - ABG Lab 4.28 mmol/L (3.70-5.30); Puncture Site Arterial Line; pH, Arterial 7.29 (7.35-7.45)
[2022-06-13] MEDS: Meropenem 1 GM in Sodium Chloride 0.9% 100 ML IVPB SCH (16:12)
[2022-06-14] MEDS: Acetaminophen 325 MG TAB PO SCH ×5 (00:10→23:36)
[2022-06-14] MEDS: Meropenem 1 GM in Sodium Chloride 0.9% 100 ML IVPB SCH ×3 (00:11→16:38)
[2022-06-14] MEDS: Acetaminophen/Codeine 30-300mg Tablet PO SCH ×5 (00:11→23:36)
[2022-06-14] MEDS: Insulin Regular 300 UNITS/3 ML VIAL SC PRN ×2 (04:08→16:07)
[2022-06-14 05:10] LABS: ALT (SGPT) 61 U/L (8-55); AST (SGOT) 41 U/L (5-34); Albumin 1.9 g/dL (3.4-4.8); Alkaline Phosphatase 307 U/L (40-110); Anion Gap 10 mmol/L (10-20); BUN (Urea Nitrogen) 41 mg/dL (8.4-25.7); Calc. Creatinine Clearance 81 mL/min (70-130); Calcium 8.1 mg/dL (7.8-10.44); Carbon Dioxide 21 mmol/L (23-31); Chloride 121 mmol/L (98-107); Estimated GFR 72; Globulin 3.4 g/dL (2.4-3.5); Glucose 185 mg/dL (83-110); Phosphorus 2.5 mg/dL (2.3-4.7); Potassium 3.6 mmol/L (3.5-5.1); Protein, Total 5.3 g/dL (5.8-8.1); Sodium 148 mmol/L (136-145)
[2022-06-14 05:15] LABS: Anisocytosis SLIGHT = 6-15 cells (100X) (0-5/hpf); Band 16 % (5-11); Eosinophils 1 % (0-10); Lymphocytes 15 % (21-51); MDiff Complete? YES; Mean Corpuscular HGB CONC 31.6 g/dL (32.0-36.0); Mean Corpuscular Hemoglobin 31.6 pg (27.0-31.0); Mean Platelet Volume 9.1 fL (7.4-10.4); Monocytes 6 % (0-10); Myelocyte 3 % (0-0); Neutrophil 59 % (42-75); Platelet Count 576 10x3/uL (130-400); Platelet Morphology Comment Appears Increased; Red Blood Cell (RBC) Count 2.84 mill/uL (4.70-6.10); White Blood Cell (WBC) Count 13.5 10x3/uL (4.8-10.8)
[2022-06-14] MEDS ORDERED: Potassium Phosphate 30 MMOL in Sodium Chloride 0.9% 250 ML 250 ML IVPB SCH (07:45)
[2022-06-14] MEDS: Heparin 5,000 UNITS/ML VIAL SC SCH ×3 (08:31→20:09)
[2022-06-14] MEDS: Acetaminophen/Codeine 30-300mg Tablet PO PRN ×2 (08:33→14:56)
[2022-06-14] MEDS: Saccharomyces boulardii 250 MG CAP PO SCH (08:33)
[2022-06-14] MEDS: Tamsulosin HCl 0.4 MG CAP PO SCH (08:34)
[2022-06-14] MEDS: Gabapentin 100 MG CAP PO SCH ×3 (08:35→20:08)
[2022-06-14] MEDS: Pantoprazole 40 MG VIAL IVP SCH ×2 (08:36→20:09)
[2022-06-14] MEDS: Polyethylene Glycol 3350 17 GM Packet PO SCH (08:36)
[2022-06-14] MEDS ORDERED: chlorproMAZINE HCl 50 MG/2 ML AMP SLOW IVP PRN (08:55)
[2022-06-14] MEDS ORDERED: chlorproMAZINE HCl 25 MG in Sodium Chloride 0.9% 50 ML IVPB PRN (09:09)
[2022-06-14] MEDS: Senokot S 8.6-50 MG TAB PO SCH ×2 (09:11→20:09)
[2022-06-14] MEDS: Ondansetron PF 4 MG/2 ML Vial IVP PRN (09:35)
[2022-06-14] MEDS ORDERED: Furosemide 20 MG/2 ML VIAL SLOW IVP SCH (19:15)
[2022-06-15] MEDS: Meropenem 1 GM in Sodium Chloride 0.9% 100 ML IVPB SCH ×3 (02:31→16:46)
[2022-06-15] MEDS: Acetaminophen/Codeine 30-300mg Tablet PO PRN ×2 (03:29→13:54)
[2022-06-15 05:28] LABS: #Eosinphils 0.1 thou/uL (0.0-0.7); #Lymphocytes 1.6 thou/uL (1.20-3.40); #Monocytes 0.8 thou/uL (0.11-0.59); #Neutrophils 9.8 thou/uL (1.40-6.50); %Basophils 0.1 % (0.0-1.0); %Eosinophils 0.5 % (0.0-10.0); %Lymphocytes 13.1 % (21.0-51.0); %Monocytes 6.5 % (0.0-10.0); %Neutrophils 79.7 % (42.0-75.0); Hemoglobin 8.9 g/dL (14.0-18.0); Mean Corpuscular HGB CONC 31.5 g/dL (32.0-36.0); Mean Corpuscular Hemoglobin 31.5 pg (27.0-31.0); Mean Platelet Volume 8.9 fL (7.4-10.4); Platelet Count 547 10x3/uL (130-400); RBC Distribution Width 15.9 % (11.5-14.5); Red Blood Cell (RBC) Count 2.81 mill/uL (4.70-6.10); White Blood Cell (WBC) Count 12.3 10x3/uL (4.8-10.8)
[2022-06-15] MEDS: Acetaminophen/Codeine 30-300mg Tablet PO SCH ×3 (05:46→18:09)
[2022-06-15] MEDS: Acetaminophen 325 MG TAB PO SCH ×3 (05:46→18:09)
[2022-06-15 06:43] LABS: Anion Gap 9 mmol/L (10-20); BUN (Urea Nitrogen) 32 mg/dL (8.4-25.7); Calc. Creatinine Clearance 85 mL/min (70-130); Calcium 8.4 mg/dL (7.8-10.44); Carbon Dioxide 22 mmol/L (23-31); Chloride 118 mmol/L (98-107); Estimated GFR 77; Glucose 111 mg/dL (83-110); Phosphorus 3.4 mg/dL (2.3-4.7); Potassium 4.2 mmol/L (3.5-5.1); Sodium 145 mmol/L (136-145)
[2022-06-15] MEDS: Tamsulosin HCl 0.4 MG CAP PO SCH (09:24)
[2022-06-15] MEDS: Gabapentin 100 MG CAP PO SCH ×3 (09:24→20:05)
[2022-06-15] MEDS: Heparin 5,000 UNITS/ML VIAL SC SCH ×3 (09:24→20:05)
[2022-06-15] MEDS: Saccharomyces boulardii 250 MG CAP PO SCH (09:24)
[2022-06-15] MEDS: Polyethylene Glycol 3350 17 GM Packet PO SCH (09:25)
[2022-06-15] MEDS: Senokot S 8.6-50 MG TAB PO SCH ×2 (09:25→20:05)
[2022-06-15] MEDS: Pantoprazole 40 MG VIAL IVP SCH ×2 (09:25→20:05)
[2022-06-15] MEDS ORDERED: Melatonin 3 MG TAB PO PRN (10:05)
[2022-06-15] MEDS ORDERED: Furosemide 20 MG/2 ML VIAL SLOW IVP SCH (17:15)
[2022-06-16] MEDS: Acetaminophen 325 MG TAB PO SCH ×5 (00:13→17:11)
[2022-06-16] MEDS: Acetaminophen/Codeine 30-300mg Tablet PO SCH ×5 (00:14→17:12)
[2022-06-16] MEDS: Meropenem 1 GM in Sodium Chloride 0.9% 100 ML IVPB SCH ×3 (00:15→17:13)
[2022-06-16 04:53] LABS: #Eosinphils 0.1 thou/uL (0.0-0.7); #Lymphocytes 1.6 thou/uL (1.20-3.40); #Monocytes 0.7 thou/uL (0.11-0.59); #Neutrophils 9.8 thou/uL (1.40-6.50); %Eosinophils 0.7 % (0.0-10.0); %Lymphocytes 13.3 % (21.0-51.0); %Monocytes 5.9 % (0.0-10.0); %Neutrophils 80.1 % (42.0-75.0); Hemoglobin 8.5 g/dL (14.0-18.0); Mean Corpuscular HGB CONC 31.5 g/dL (32.0-36.0); Mean Corpuscular Hemoglobin 32.2 pg (27.0-31.0); Mean Platelet Volume 8.4 fL (7.4-10.4); Platelet Count 554 10x3/uL (130-400); RBC Distribution Width 15.8 % (11.5-14.5); Red Blood Cell (RBC) Count 2.63 mill/uL (4.70-6.10); White Blood Cell (WBC) Count 12.2 10x3/uL (4.8-10.8)
[2022-06-16 05:28] LABS: Anion Gap 7 mmol/L (10-20); BUN (Urea Nitrogen) 26 mg/dL (8.4-25.7); Calc. Creatinine Clearance 90 mL/min (70-130); Calcium 8.1 mg/dL (7.8-10.44); Carbon Dioxide 25 mmol/L (23-31); Chloride 114 mmol/L (98-107); Estimated GFR 82; Glucose 98 mg/dL (83-110); Magnesium 1.9 mg/dL (1.6-2.6); Phosphorus 2.9 mg/dL (2.3-4.7); Potassium 4.2 mmol/L (3.5-5.1); Sodium 142 mmol/L (136-145)
[2022-06-16] MEDS: Pantoprazole 40 MG VIAL IVP SCH ×2 (09:41→19:57)
[2022-06-16] MEDS: Polyethylene Glycol 3350 17 GM Packet PO SCH (09:42)
[2022-06-16] MEDS: Senokot S 8.6-50 MG TAB PO SCH ×2 (09:43→19:57)
[2022-06-16] MEDS: Gabapentin 100 MG CAP PO SCH ×3 (09:44→19:56)
[2022-06-16] MEDS: Saccharomyces boulardii 250 MG CAP PO SCH (09:45)
[2022-06-16] MEDS: Tamsulosin HCl 0.4 MG CAP PO SCH (09:45)
[2022-06-16] MEDS: Heparin 5,000 UNITS/ML VIAL SC SCH ×3 (10:04→19:56)
[2022-06-16] MEDS ORDERED: hydrALAZINE 20 MG/ML VIAL SLOW IVP PRN (11:34)
[2022-06-16] MEDS ORDERED: Ramipril 5 MG CAP PO SCH (11:45)
[2022-06-16] MEDS ORDERED: Magnesium 2 GM/50 ML(in water) 2 GM in Premix Bag 1 BAG IVPB SCH (15:00)
[2022-06-17] MEDS: Acetaminophen/Codeine 30-300mg Tablet PO SCH ×4 (00:15→18:05)
[2022-06-17] MEDS: Acetaminophen 325 MG TAB PO SCH ×4 (00:15→18:03)
[2022-06-17] MEDS: Meropenem 1 GM in Sodium Chloride 0.9% 100 ML IVPB SCH ×3 (00:55→18:04)
[2022-06-17] MEDS: Tamsulosin HCl 0.4 MG CAP PO SCH (08:45)
[2022-06-17] MEDS: Senokot S 8.6-50 MG TAB PO SCH ×2 (08:46→20:36)
[2022-06-17] MEDS: Saccharomyces boulardii 250 MG CAP PO SCH (08:46)
[2022-06-17] MEDS: Polyethylene Glycol 3350 17 GM Packet PO SCH (08:47)
[2022-06-17] MEDS: Gabapentin 100 MG CAP PO SCH ×3 (08:47→20:36)
[2022-06-17] MEDS: Ramipril 5 MG CAP PO SCH (08:47)
[2022-06-17] MEDS: Pantoprazole 40 MG VIAL IVP SCH ×2 (08:48→20:37)
[2022-06-17] MEDS: Heparin 5,000 UNITS/ML VIAL SC SCH ×3 (08:48→20:37)
[2022-06-17] MEDS ORDERED: Non-Formulary Item 1 EACH (Ramipril [Ramipril] 10 MG Capsule) PO SCH (09:00)
[2022-06-18] MEDS: Acetaminophen 325 MG TAB PO SCH ×4 (00:28→18:22)
[2022-06-18] MEDS: Meropenem 1 GM in Sodium Chloride 0.9% 100 ML IVPB SCH ×3 (00:29→18:22)
[2022-06-18] MEDS: Acetaminophen/Codeine 30-300mg Tablet PO SCH ×4 (01:28→20:26)
[2022-06-18 06:22] LABS: #Eosinphils 0.1 thou/uL (0.0-0.7); #Lymphocytes 1.5 thou/uL (1.20-3.40); #Monocytes 0.8 thou/uL (0.11-0.59); #Neutrophils 8.7 thou/uL (1.40-6.50); %Basophils 0.1 % (0.0-1.0); %Eosinophils 0.6 % (0.0-10.0); %Lymphocytes 13.4 % (21.0-51.0); %Monocytes 7.4 % (0.0-10.0); %Neutrophils 78.4 % (42.0-75.0); Hemoglobin 7.8 g/dL (14.0-18.0); Mean Corpuscular HGB CONC 30.8 g/dL (32.0-36.0); Mean Corpuscular Hemoglobin 31.5 pg (27.0-31.0); Mean Platelet Volume 8.2 fL (7.4-10.4); Platelet Count 606 10x3/uL (130-400); RBC Distribution Width 15.9 % (11.5-14.5); Red Blood Cell (RBC) Count 2.49 mill/uL (4.70-6.10)
[2022-06-18 06:29] LABS: Anion Gap 8 mmol/L (10-20); BUN (Urea Nitrogen) 16 mg/dL (8.4-25.7); Calc. Creatinine Clearance 112 mL/min (70-130); Calcium 7.9 mg/dL (7.8-10.44); Carbon Dioxide 24 mmol/L (23-31); Chloride 109 mmol/L (98-107); Estimated GFR 93; Glucose 114 mg/dL (83-110); Phosphorus 2.5 mg/dL (2.3-4.7); Sodium 137 mmol/L (136-145)
[2022-06-18] MEDS: Polyethylene Glycol 3350 17 GM Packet PO SCH (09:24)
[2022-06-18] MEDS: Senokot S 8.6-50 MG TAB PO SCH ×2 (09:25→20:27)
[2022-06-18] MEDS: Ramipril 5 MG CAP PO SCH (09:26)
[2022-06-18] MEDS: Tamsulosin HCl 0.4 MG CAP PO SCH (09:26)
[2022-06-18] MEDS: Gabapentin 100 MG CAP PO SCH ×3 (09:26→20:29)
[2022-06-18] MEDS: Saccharomyces boulardii 250 MG CAP PO SCH (09:27)
[2022-06-18] MEDS: Pantoprazole 40 MG VIAL IVP SCH ×2 (09:28→20:29)
[2022-06-18] MEDS: Enoxaparin Sodium 40 MG/0.4 ML SYRINGE SC SCH (09:28)
[2022-06-19] MEDS: Meropenem 1 GM in Sodium Chloride 0.9% 100 ML IVPB SCH ×3 (01:37→18:22)
[2022-06-19] MEDS: Acetaminophen 325 MG TAB PO SCH ×4 (05:57→18:22)
[2022-06-19] MEDS: Acetaminophen/Codeine 30-300mg Tablet PO SCH ×4 (05:57→18:34)
[2022-06-19] MEDS: Ascorbic Acid 500 mg Chewable Tablet PO SCH (09:43)
[2022-06-19] MEDS: Enoxaparin Sodium 40 MG/0.4 ML SYRINGE SC SCH (09:43)
[2022-06-19] MEDS: Gabapentin 100 MG CAP PO SCH ×3 (09:43→21:08)
[2022-06-19] MEDS: Ferrous Sulfate 325 MG TAB PO SCH ×2 (09:43→18:22)
[2022-06-19] MEDS: Pantoprazole 40 MG VIAL IVP SCH ×2 (09:44→21:10)
[2022-06-19] MEDS: Polyethylene Glycol 3350 17 GM Packet PO SCH (09:44)
[2022-06-19] MEDS: Saccharomyces boulardii 250 MG CAP PO SCH (09:44)
[2022-06-19] MEDS: Ramipril 5 MG CAP PO SCH (09:44)
[2022-06-19] MEDS: Senokot S 8.6-50 MG TAB PO SCH ×2 (09:45→21:07)
[2022-06-19] MEDS: Tamsulosin HCl 0.4 MG CAP PO SCH (09:45)
[2022-06-20] MEDS: Acetaminophen/Codeine 30-300mg Tablet PO SCH ×2 (00:37→06:04)
[2022-06-20] MEDS: Acetaminophen 325 MG TAB PO SCH ×2 (00:37→06:04)
[2022-06-20] MEDS: Meropenem 1 GM in Sodium Chloride 0.9% 100 ML IVPB SCH ×4 (01:16→23:52)
[2022-06-20] MEDS ORDERED: Pantoprazole 40 MG VIAL IVP SCH (08:30)
[2022-06-20] MEDS: Enoxaparin Sodium 40 MG/0.4 ML SYRINGE SC SCH (08:41)
[2022-06-20] MEDS: Polyethylene Glycol 3350 17 GM Packet PO SCH (08:42)
[2022-06-20] MEDS: Ascorbic Acid 500 mg Chewable Tablet PO SCH (08:42)
[2022-06-20] MEDS: Ramipril 5 MG CAP PO SCH (08:43)
[2022-06-20] MEDS: Senokot S 8.6-50 MG TAB PO SCH ×2 (08:43→20:40)
[2022-06-20] MEDS: Ferrous Sulfate 325 MG TAB PO SCH ×2 (08:45→16:25)
[2022-06-20] MEDS: Gabapentin 100 MG CAP PO SCH (08:45)
[2022-06-20] MEDS: Saccharomyces boulardii 250 MG CAP PO SCH (08:45)
[2022-06-20] MEDS: Tamsulosin HCl 0.4 MG CAP PO SCH (08:45)
[2022-06-20] MEDS: Acetaminophen/Codeine 30-300mg Tablet PO PRN (08:45)
[2022-06-20] MEDS ORDERED: Furosemide 20 MG/2 ML VIAL SLOW IVP SCH (09:45)
[2022-06-20] MEDS: Ibuprofen 200 MG TAB PO PRN ×2 (12:36→23:52)
[2022-06-20] MEDS: Acetaminophen 500 MG TAB PO SCH ×2 (14:14→20:40)
[2022-06-20] MEDS: Ondansetron PF 4 MG/2 ML Vial IVP PRN (17:27)
[2022-06-21] MEDS: Acetaminophen 500 MG TAB PO SCH ×4 (04:55→20:52)
[2022-06-21 06:52] LABS: #Lymphocytes 1.7 thou/uL (1.20-3.40); #Monocytes 0.8 thou/uL (0.11-0.59); #Neutrophils 7.8 thou/uL (1.40-6.50); %Basophils 0.3 % (0.0-1.0); %Eosinophils 0.5 % (0.0-10.0); %Lymphocytes 16.2 % (21.0-51.0); %Monocytes 8.1 % (0.0-10.0); %Neutrophils 74.9 % (42.0-75.0); Hemoglobin 8.2 g/dL (14.0-18.0); Mean Corpuscular HGB CONC 31.7 g/dL (32.0-36.0); Mean Corpuscular Hemoglobin 32.1 pg (27.0-31.0); Mean Platelet Volume 7.5 fL (7.4-10.4); Platelet Count 644 10x3/uL (130-400); RBC Distribution Width 15.4 % (11.5-14.5); Red Blood Cell (RBC) Count 2.55 mill/uL (4.70-6.10); White Blood Cell (WBC) Count 10.4 10x3/uL (4.8-10.8)
[2022-06-21 07:15] LABS: Anion Gap 7 mmol/L (10-20); BUN (Urea Nitrogen) 10 mg/dL (8.4-25.7); Calc. Creatinine Clearance 125 mL/min (70-130); Carbon Dioxide 27 mmol/L (23-31); Chloride 106 mmol/L (98-107); Estimated GFR 97; Glucose 91 mg/dL (83-110); Magnesium 1.9 mg/dL (1.6-2.6); Phosphorus 2.3 mg/dL (2.3-4.7); Potassium 3.8 mmol/L (3.5-5.1); Sodium 136 mmol/L (136-145)
[2022-06-21] MEDS ORDERED: PHOS-NAK 1 PKT PACK PO SCH (07:45)
[2022-06-21] MEDS: Meropenem 1 GM in Sodium Chloride 0.9% 100 ML IVPB SCH ×2 (08:38→16:42)
[2022-06-21] MEDS: Enoxaparin Sodium 40 MG/0.4 ML SYRINGE SC SCH (08:38)
[2022-06-21] MEDS: Tamsulosin HCl 0.4 MG CAP PO SCH (10:45)
[2022-06-21] MEDS: Ascorbic Acid 500 mg Chewable Tablet PO SCH (10:45)
[2022-06-21] MEDS: Ramipril 5 MG CAP PO SCH (10:45)
[2022-06-21] MEDS: Ferrous Sulfate 325 MG TAB PO SCH ×2 (10:45→16:42)
[2022-06-21] MEDS: Saccharomyces boulardii 250 MG CAP PO SCH (10:46)
[2022-06-21] MEDS: Senokot S 8.6-50 MG TAB PO SCH ×2 (10:46→20:53)
[2022-06-21] MEDS: Polyethylene Glycol 3350 17 GM Packet PO SCH (10:46)
[2022-06-21] MEDS ORDERED: Iopamidol-370 76% 500 ML 1 ML ONE (11:05)
[2022-06-22] MEDS: Meropenem 1 GM in Sodium Chloride 0.9% 100 ML IVPB SCH ×3 (00:44→18:26)
[2022-06-22 01:47] LABS: INR-International Normal Ratio 1.1; PTT 40.2 sec (22.9-36.1); Prothrombin Time 14.6 sec (12.0-14.7)
[2022-06-22] MEDS: Acetaminophen 500 MG TAB PO SCH ×3 (04:30→17:04)
[2022-06-22 06:34] LABS: #Basophils 0.1 thou/uL (0.0-0.2); #Lymphocytes 1.6 thou/uL (1.20-3.40); #Monocytes 1.1 thou/uL (0.11-0.59); #Neutrophils 9.8 thou/uL (1.40-6.50); %Basophils 0.5 % (0.0-1.0); %Eosinophils 0.2 % (0.0-10.0); %Monocytes 8.6 % (0.0-10.0); %Neutrophils 77.8 % (42.0-75.0); Hemoglobin 8.7 g/dL (14.0-18.0); Mean Corpuscular HGB CONC 31.3 g/dL (32.0-36.0); Mean Corpuscular Hemoglobin 32.1 pg (27.0-31.0); Platelet Count 685 10x3/uL (130-400); RBC Distribution Width 15.5 % (11.5-14.5); Red Blood Cell (RBC) Count 2.71 mill/uL (4.70-6.10); White Blood Cell (WBC) Count 12.6 10x3/uL (4.8-10.8)
[2022-06-22] MEDS: Ferrous Sulfate 325 MG TAB PO SCH ×2 (13:18→18:26)
[2022-06-22] MEDS: Ramipril 5 MG CAP PO SCH (13:18)
[2022-06-22] MEDS: Ascorbic Acid 500 mg Chewable Tablet PO SCH (13:18)
[2022-06-22] MEDS: Enoxaparin Sodium 40 MG/0.4 ML SYRINGE SC SCH (13:18)
[2022-06-22] MEDS: Polyethylene Glycol 3350 17 GM Packet PO SCH (13:18)
[2022-06-22] MEDS: Senokot S 8.6-50 MG TAB PO SCH ×2 (13:19→21:31)
[2022-06-22] MEDS: Saccharomyces boulardii 250 MG CAP PO SCH (13:19)
[2022-06-22] MEDS: Tamsulosin HCl 0.4 MG CAP PO SCH (13:19)
[2022-06-22] MEDS ORDERED: fentaNYL PF 100 MCG/2 ML SYRINGE ONE ×3 (13:31→17:27)
[2022-06-22] MEDS ORDERED: SUGAMMADEX SODIUM 200 MG/2 ML VIAL ONE (14:15)
[2022-06-22] MEDS ORDERED: Phenylephrine 10 MG/ML VIAL ONE (14:27)
[2022-06-22] MEDS ORDERED: Ketorolac Tromethamine 30 MG/ML VIAL ONE (14:27)
[2022-06-22] MEDS ORDERED: Rocuronium Bromide 10 MG/ML (10ML VIAL) ONE (14:27)
[2022-06-22] MEDS ORDERED: Succinylcholine 200 MG/10 ml SYRINGE FS ONE (14:27)
[2022-06-22] MEDS ORDERED: Norepinephrine 4 MG/4 ML VIAL ONE (15:35)
[2022-06-22] MEDS: Sodium Chloride 0.9% 1,000 ML IV SCH ×2 (17:04→21:34)
[2022-06-22] MEDS ORDERED: Promethazine HCl 25 MG/ML VIAL IM PRN (17:23)
[2022-06-22] MEDS ORDERED: Ondansetron HCl/PF 4 MG/2 ML Vial IVP PRN (17:23)
[2022-06-22] MEDS ORDERED: Promethazine HCl 25 MG/ML VIAL IVPB PRN (17:23)
[2022-06-22] MEDS ORDERED: FENTANYL 50 MCG/ML 1 ML VIAL ONE ×2 (18:04→20:20)
[2022-06-22] MEDS ORDERED: Morphine 4 MG/ML VIAL SLOW IVP PRN (20:45)
[2022-06-22] MEDS: Famotidine/PF 20 mg/2ml Vial SLOW IVP SCH (21:34)
[2022-06-22] MEDS: Acetaminophen 325 MG TAB PO SCH (23:50)
[2022-06-22] MEDS: Acetaminophen/Codeine 30-300mg Tablet PO SCH (23:51)
[2022-06-22] MEDS: Ketorolac Tromethamine 30 MG/ML VIAL IVP SCH (23:51)
[2022-06-23] MEDS: Morphine 4 MG/ML VIAL SLOW IVP PRN ×2 (00:48→08:29)
[2022-06-23] MEDS: Meropenem 1 GM in Sodium Chloride 0.9% 100 ML IVPB SCH ×3 (00:49→18:35)
[2022-06-23] MEDS: Sodium Chloride 0.9% 1,000 ML IV SCH (05:45)
[2022-06-23] MEDS: Ketorolac Tromethamine 30 MG/ML VIAL IVP SCH ×3 (05:46→18:34)
[2022-06-23] MEDS: Acetaminophen 325 MG TAB PO SCH ×3 (05:48→18:33)
[2022-06-23] MEDS: Acetaminophen/Codeine 30-300mg Tablet PO SCH ×3 (05:48→18:34)
[2022-06-23 06:19] LABS: ALT (SGPT) 43 U/L (8-55); AST (SGOT) 33 U/L (5-34); Albumin 1.9 g/dL (3.4-4.8); Alkaline Phosphatase 253 U/L (40-110); Anion Gap 10 mmol/L (10-20); BUN (Urea Nitrogen) 13 mg/dL (8.4-25.7); Bilirubin, Total 1.3 mg/dL (0.2-1.2); Calc. Creatinine Clearance 119 mL/min (70-130); Calcium 7.8 mg/dL (7.8-10.44); Carbon Dioxide 23 mmol/L (23-31); Chloride 109 mmol/L (98-107); Estimated GFR 96; Glucose 87 mg/dL (83-110); Magnesium 1.8 mg/dL (1.6-2.6); Phosphorus 2.6 mg/dL (2.3-4.7); Potassium 4.3 mmol/L (3.5-5.1); Protein, Total 4.9 g/dL (5.8-8.1); Sodium 138 mmol/L (136-145)
[2022-06-23 06:36] LABS: #Basophils 0.1 thou/uL (0.0-0.2); #Lymphocytes 1.7 thou/uL (1.20-3.40); #Monocytes 0.8 thou/uL (0.11-0.59); #Neutrophils 12.2 thou/uL (1.40-6.50); %Basophils 0.4 % (0.0-1.0); %Eosinophils 0.3 % (0.0-10.0); %Lymphocytes 11.6 % (21.0-51.0); %Monocytes 5.1 % (0.0-10.0); %Neutrophils 82.6 % (42.0-75.0); Hemoglobin 10.3 g/dL (14.0-18.0); Mean Corpuscular Hemoglobin 32.1 pg (27.0-31.0); Mean Platelet Volume 7.4 fL (7.4-10.4); Platelet Count 563 10x3/uL (130-400); RBC Distribution Width 15.5 % (11.5-14.5); Red Blood Cell (RBC) Count 3.22 mill/uL (4.70-6.10); White Blood Cell (WBC) Count 14.8 10x3/uL (4.8-10.8)
[2022-06-23] MEDS ORDERED: Sodium Phosphate 15 MMOL in Sodium Chloride 0.9% 250 ML 250 ML IVPB SCH (07:30)
[2022-06-23] MEDS ORDERED: Magnesium 2 GM/50 ML(in water) 2 GM in Premix Bag 1 BAG IVPB SCH (08:00)
[2022-06-23] MEDS: Famotidine/PF 20 mg/2ml Vial SLOW IVP SCH ×2 (08:28→20:51)
[2022-06-23] MEDS: Enoxaparin Sodium 40 MG/0.4 ML SYRINGE SC SCH (08:29)
[2022-06-23] MEDS: Tamsulosin HCl 0.4 MG CAP PO SCH (08:45)
[2022-06-23] MEDS: Ramipril 5 MG CAP PO SCH (08:47)
[2022-06-23] MEDS: Saccharomyces boulardii 250 MG CAP PO SCH (08:49)
[2022-06-23] MEDS: Polyethylene Glycol 3350 17 GM Packet PO SCH (08:49)
[2022-06-23] MEDS: Ascorbic Acid 500 mg Chewable Tablet PO SCH (08:49)
[2022-06-23] MEDS: Ferrous Sulfate 325 MG TAB PO SCH ×2 (08:49→18:33)
[2022-06-23] MEDS: Senokot S 8.6-50 MG TAB PO SCH ×2 (08:49→20:51)
[2022-06-24] MEDS: Meropenem 1 GM in Sodium Chloride 0.9% 100 ML IVPB SCH ×3 (00:14→18:19)
[2022-06-24] MEDS: Acetaminophen/Codeine 30-300mg Tablet PO SCH ×2 (00:14→06:08)
[2022-06-24] MEDS: Acetaminophen 325 MG TAB PO SCH ×2 (00:15→06:08)
[2022-06-24] MEDS: Ketorolac Tromethamine 30 MG/ML VIAL IVP SCH ×4 (00:16→18:19)
[2022-06-24 05:44] LABS: #Eosinphils 0.1 thou/uL (0.0-0.7); #Lymphocytes 1.9 thou/uL (1.20-3.40); #Monocytes 0.8 thou/uL (0.11-0.59); #Neutrophils 10.9 thou/uL (1.40-6.50); %Basophils 0.3 % (0.0-1.0); %Eosinophils 0.4 % (0.0-10.0); %Lymphocytes 13.7 % (21.0-51.0); %Monocytes 6.1 % (0.0-10.0); %Neutrophils 79.5 % (42.0-75.0); Hemoglobin 9.6 g/dL (14.0-18.0); Mean Corpuscular HGB CONC 31.1 g/dL (32.0-36.0); Mean Corpuscular Hemoglobin 31.4 pg (27.0-31.0); Mean Platelet Volume 7.1 fL (7.4-10.4); Platelet Count 525 10x3/uL (130-400); Red Blood Cell (RBC) Count 3.04 mill/uL (4.70-6.10); White Blood Cell (WBC) Count 13.8 10x3/uL (4.8-10.8)
[2022-06-24 06:10] LABS: Anion Gap 8 mmol/L (10-20); BUN (Urea Nitrogen) 13 mg/dL (8.4-25.7); Calc. Creatinine Clearance 130 mL/min (70-130); Calcium 7.9 mg/dL (7.8-10.44); Carbon Dioxide 24 mmol/L (23-31); Chloride 108 mmol/L (98-107); Estimated GFR 98; Glucose 91 mg/dL (83-110); Magnesium 2.1 mg/dL (1.6-2.6); Phosphorus 2.5 mg/dL (2.3-4.7); Potassium 4.1 mmol/L (3.5-5.1); Sodium 136 mmol/L (136-145)
[2022-06-24] MEDS ORDERED: PHOS-NAK 1 PKT PACK PO SCH (08:30)
[2022-06-24] MEDS ORDERED: Furosemide 20 MG/2 ML VIAL SLOW IVP SCH (08:45)
[2022-06-24] MEDS ORDERED: Morphine 4 MG/ML VIAL SLOW IVP PRN (11:05)
[2022-06-24] MEDS: Ramipril 5 MG CAP PO SCH (11:10)
[2022-06-24] MEDS: Tamsulosin HCl 0.4 MG CAP PO SCH (11:10)
[2022-06-24] MEDS: Polyethylene Glycol 3350 17 GM Packet PO SCH (11:11)
[2022-06-24] MEDS: Ferrous Sulfate 325 MG TAB PO SCH ×2 (11:11→18:19)
[2022-06-24] MEDS: Senokot S 8.6-50 MG TAB PO SCH ×2 (11:11→21:10)
[2022-06-24] MEDS: Ascorbic Acid 500 mg Chewable Tablet PO SCH (11:11)
[2022-06-24] MEDS: Enoxaparin Sodium 40 MG/0.4 ML SYRINGE SC SCH (11:12)
[2022-06-24] MEDS: Saccharomyces boulardii 250 MG CAP PO SCH (11:12)
[2022-06-24] MEDS: Famotidine/PF 20 mg/2ml Vial SLOW IVP SCH ×2 (11:12→21:10)
[2022-06-24] MEDS: Acetaminophen 325 MG TAB PO PRN (16:58)
[2022-06-24] MEDS: Melatonin 3 MG TAB PO SCH (21:10)
[2022-06-25] MEDS: Meropenem 1 GM in Sodium Chloride 0.9% 100 ML IVPB SCH ×3 (00:50→17:00)
[2022-06-25] MEDS: Ketorolac Tromethamine 30 MG/ML VIAL IVP SCH ×5 (00:50→23:40)
[2022-06-25 06:42] LABS: #Eosinphils 0.1 thou/uL (0.0-0.7); #Lymphocytes 1.6 thou/uL (1.20-3.40); #Monocytes 0.8 thou/uL (0.11-0.59); #Neutrophils 10.6 thou/uL (1.40-6.50); %Basophils 0.3 % (0.0-1.0); %Eosinophils 0.6 % (0.0-10.0); %Monocytes 6.3 % (0.0-10.0); %Neutrophils 80.8 % (42.0-75.0); Hemoglobin 9.4 g/dL (14.0-18.0); Mean Corpuscular HGB CONC 31.8 g/dL (32.0-36.0); Mean Corpuscular Hemoglobin 31.7 pg (27.0-31.0); Mean Corpuscular Volume 99.8 fl (78.0-98.0); Platelet Count 547 10x3/uL (130-400); RBC Distribution Width 14.9 % (11.5-14.5); Red Blood Cell (RBC) Count 2.95 mill/uL (4.70-6.10); White Blood Cell (WBC) Count 13.1 10x3/uL (4.8-10.8)
[2022-06-25 07:03] LABS: Anion Gap 8 mmol/L (10-20); BUN (Urea Nitrogen) 13 mg/dL (8.4-25.7); Calc. Creatinine Clearance 126 mL/min (70-130); Calcium 8.3 mg/dL (7.8-10.44); Carbon Dioxide 25 mmol/L (23-31); Chloride 107 mmol/L (98-107); Estimated GFR 97; Glucose 101 mg/dL (83-110); Phosphorus 2.1 mg/dL (2.3-4.7); Potassium 4.4 mmol/L (3.5-5.1); Sodium 136 mmol/L (136-145)
[2022-06-25] MEDS ORDERED: Sodium Phosphate 30 MMOL in Sodium Chloride 0.9% 250 ML 250 ML IVPB SCH (08:30)
[2022-06-25] MEDS: Ascorbic Acid 500 mg Chewable Tablet PO SCH (09:20)
[2022-06-25] MEDS: Saccharomyces boulardii 250 MG CAP PO SCH (09:20)
[2022-06-25] MEDS: Ferrous Sulfate 325 MG TAB PO SCH ×2 (09:20→16:57)
[2022-06-25] MEDS: Tamsulosin HCl 0.4 MG CAP PO SCH (09:21)
[2022-06-25] MEDS: Senokot S 8.6-50 MG TAB PO SCH ×2 (09:21→20:52)
[2022-06-25] MEDS: Ramipril 5 MG CAP PO SCH (09:21)
[2022-06-25] MEDS: Polyethylene Glycol 3350 17 GM Packet PO SCH (09:22)
[2022-06-25] MEDS: Enoxaparin Sodium 40 MG/0.4 ML SYRINGE SC SCH (09:22)
[2022-06-25] MEDS: Famotidine 20 MG TAB PO SCH ×2 (09:22→20:52)
[2022-06-25] MEDS ORDERED: Gentamicin Sulfate 80 MG in Premix Bag 1 BAG IVPB SCH (12:30)
[2022-06-25] MEDS: DAPTOmycin 700 MG in Sodium Chloride 0.9% 100 ML IVPB SCH (15:46)
[2022-06-25] MEDS ORDERED: Gentamicin Sulfate 100 MG in Premix Bag 1 BAG IVPB SCH (16:00)
[2022-06-25] MEDS: Gentamicin Sulfate 100 MG in Premix Bag 1 BAG IVPB SCH ×2 (16:52→23:41)
[2022-06-25] MEDS: traZODone HCl 50 MG TAB PO SCH (20:52)
[2022-06-25] MEDS: Melatonin 3 MG TAB PO SCH (20:52)
[2022-06-25] MEDS: guaiFENesin/DM ER PO PRN (20:55)
[2022-06-26] MEDS ORDERED: Haloperidol Lactate 5 MG/ML VIAL ONE (01:03)
[2022-06-26] MEDS: Meropenem 1 GM in Sodium Chloride 0.9% 100 ML IVPB SCH ×3 (01:11→17:31)
[2022-06-26] MEDS ORDERED: Haloperidol Lactate 5 MG/ML VIAL IM SCH (01:15)
[2022-06-26] MEDS ORDERED: diphenhydrAMINE 50 MG/ML VIAL IVP SCH (02:00)
[2022-06-26] MEDS ORDERED: Lorazepam 2 MG/ML VIAL SLOW IVP SCH (03:00)
[2022-06-26] MEDS: Ketorolac Tromethamine 30 MG/ML VIAL IVP SCH ×4 (05:20→23:16)
[2022-06-26 06:44] LABS: #Eosinphils 0.1 thou/uL (0.0-0.7); #Monocytes 0.9 thou/uL (0.11-0.59); #Neutrophils 8.2 thou/uL (1.40-6.50); %Basophils 0.4 % (0.0-1.0); %Eosinophils 0.7 % (0.0-10.0); %Lymphocytes 17.7 % (21.0-51.0); %Monocytes 8.2 % (0.0-10.0); %Neutrophils 72.9 % (42.0-75.0); Hemoglobin 9.5 g/dL (14.0-18.0); Mean Corpuscular HGB CONC 30.9 g/dL (32.0-36.0); Mean Corpuscular Hemoglobin 31.4 pg (27.0-31.0); Mean Platelet Volume 7.1 fL (7.4-10.4); Platelet Count 504 10x3/uL (130-400); RBC Distribution Width 14.9 % (11.5-14.5); Red Blood Cell (RBC) Count 3.01 mill/uL (4.70-6.10); White Blood Cell (WBC) Count 11.3 10x3/uL (4.8-10.8)
[2022-06-26 07:08] LABS: ALT (SGPT) 34 U/L (8-55); AST (SGOT) 30 U/L (5-34); Albumin 2.1 g/dL (3.4-4.8); Alkaline Phosphatase 326 U/L (40-110); Anion Gap 11 mmol/L (10-20); BUN (Urea Nitrogen) 10 mg/dL (8.4-25.7); Bilirubin, Total 1.2 mg/dL (0.2-1.2); Calc. Creatinine Clearance 120 mL/min (70-130); Calcium 8.5 mg/dL (7.8-10.44); Carbon Dioxide 23 mmol/L (23-31); Chloride 110 mmol/L (98-107); Estimated GFR 95; Globulin 3.3 g/dL (2.4-3.5); Glucose 81 mg/dL (83-110); Magnesium 1.9 mg/dL (1.6-2.6); Phosphorus 2.3 mg/dL (2.3-4.7); Potassium 4.5 mmol/L (3.5-5.1); Protein, Total 5.4 g/dL (5.8-8.1); Sodium 139 mmol/L (136-145)
[2022-06-26] MEDS: Tamsulosin HCl 0.4 MG CAP PO SCH (09:45)
[2022-06-26] MEDS: Saccharomyces boulardii 250 MG CAP PO SCH (09:45)
[2022-06-26] MEDS: Polyethylene Glycol 3350 17 GM Packet PO SCH (09:45)
[2022-06-26] MEDS: Ramipril 5 MG CAP PO SCH (09:45)
[2022-06-26] MEDS: Ferrous Sulfate 325 MG TAB PO SCH ×2 (09:45→17:31)
[2022-06-26] MEDS: Famotidine 20 MG TAB PO SCH ×2 (09:45→21:19)
[2022-06-26] MEDS: Senokot S 8.6-50 MG TAB PO SCH ×2 (09:45→21:19)
[2022-06-26] MEDS: Ascorbic Acid 500 mg Chewable Tablet PO SCH (09:46)
[2022-06-26] MEDS: Gentamicin Sulfate 100 MG in Premix Bag 1 BAG IVPB SCH ×3 (09:46→23:16)
[2022-06-26] MEDS: Enoxaparin Sodium 40 MG/0.4 ML SYRINGE SC SCH (09:47)
[2022-06-26] MEDS: DAPTOmycin 700 MG in Sodium Chloride 0.9% 100 ML IVPB SCH (11:59)
[2022-06-26] MEDS: traZODone HCl 50 MG TAB PO SCH (21:18)
[2022-06-26] MEDS: Melatonin 3 MG TAB PO SCH (21:18)
[2022-06-26] MEDS: guaiFENesin/DM ER PO PRN (21:19)
[2022-06-26] MEDS: Acetaminophen/Codeine 30-300mg Tablet PO PRN (21:19)
[2022-06-27] MEDS: Meropenem 1 GM in Sodium Chloride 0.9% 100 ML IVPB SCH ×3 (01:00→17:51)
[2022-06-27] MEDS: Ketorolac Tromethamine 30 MG/ML VIAL IVP SCH ×4 (05:07→23:53)
[2022-06-27 07:53] LABS: #Lymphocytes 1.9 thou/uL (1.20-3.40); #Monocytes 0.8 thou/uL (0.11-0.59); #Neutrophils 7.8 thou/uL (1.40-6.50); %Basophils 0.3 % (0.0-1.0); %Eosinophils 0.5 % (0.0-10.0); %Lymphocytes 18.2 % (21.0-51.0); %Monocytes 7.8 % (0.0-10.0); %Neutrophils 73.3 % (42.0-75.0); Hemoglobin 9.2 g/dL (14.0-18.0); Mean Corpuscular HGB CONC 30.8 g/dL (32.0-36.0); Mean Corpuscular Hemoglobin 31.5 pg (27.0-31.0); Mean Platelet Volume 6.9 fL (7.4-10.4); Platelet Count 479 10x3/uL (130-400); RBC Distribution Width 14.7 % (11.5-14.5); Red Blood Cell (RBC) Count 2.93 mill/uL (4.70-6.10); White Blood Cell (WBC) Count 10.6 10x3/uL (4.8-10.8)
[2022-06-27 08:15] LABS: Anion Gap 9 mmol/L (10-20); BUN (Urea Nitrogen) 8 mg/dL (8.4-25.7); Calc. Creatinine Clearance 132 mL/min (70-130); Calcium 8.4 mg/dL (7.8-10.44); Carbon Dioxide 24 mmol/L (23-31); Chloride 110 mmol/L (98-107); Estimated GFR 98; Glucose 88 mg/dL (83-110); Magnesium 1.9 mg/dL (1.6-2.6); Phosphorus 2.6 mg/dL (2.3-4.7); Potassium 4.4 mmol/L (3.5-5.1); Sodium 139 mmol/L (136-145)
[2022-06-27] MEDS: Ascorbic Acid 500 mg Chewable Tablet PO SCH (08:59)
[2022-06-27] MEDS: Senokot S 8.6-50 MG TAB PO SCH ×2 (09:00→21:27)
[2022-06-27] MEDS: Ferrous Sulfate 325 MG TAB PO SCH ×2 (09:00→17:54)
[2022-06-27] MEDS: Ramipril 5 MG CAP PO SCH (09:00)
[2022-06-27] MEDS: Famotidine 20 MG TAB PO SCH ×2 (09:00→21:27)
[2022-06-27] MEDS: Tamsulosin HCl 0.4 MG CAP PO SCH (09:00)
[2022-06-27] MEDS: Saccharomyces boulardii 250 MG CAP PO SCH (09:00)
[2022-06-27] MEDS: Enoxaparin Sodium 40 MG/0.4 ML SYRINGE SC SCH (09:01)
[2022-06-27] MEDS: Polyethylene Glycol 3350 17 GM Packet PO SCH (09:01)
[2022-06-27] MEDS: Gentamicin Sulfate 100 MG in Premix Bag 1 BAG IVPB SCH ×2 (10:20→23:52)
[2022-06-27] MEDS ORDERED: PHOS-NAK 1 PKT PACK PO SCH (12:30)
[2022-06-27] MEDS: Furosemide 20 MG/2 ML VIAL SLOW IVP SCH ×2 (12:48→23:54)
[2022-06-27] MEDS: DAPTOmycin 700 MG in Sodium Chloride 0.9% 100 ML IVPB SCH (15:53)
[2022-06-27] MEDS: Melatonin 3 MG TAB PO SCH (21:27)
[2022-06-27] MEDS: traZODone HCl 50 MG TAB PO SCH (21:28)
[2022-06-27] MEDS ORDERED: Gentamicin Sulfate 100 MG in Premix Bag 1 BAG IVPB SCH (23:00)
[2022-06-28] MEDS: Meropenem 1 GM in Sodium Chloride 0.9% 100 ML IVPB SCH ×3 (02:51→17:39)
[2022-06-28 08:14] LABS: #Eosinphils 0.1 thou/uL (0.0-0.7); #Lymphocytes 2.3 thou/uL (1.20-3.40); #Monocytes 0.8 thou/uL (0.11-0.59); #Neutrophils 7.2 thou/uL (1.40-6.50); %Basophils 0.1 % (0.0-1.0); %Eosinophils 0.9 % (0.0-10.0); %Lymphocytes 22.1 % (21.0-51.0); %Monocytes 7.6 % (0.0-10.0); %Neutrophils 69.2 % (42.0-75.0); Hemoglobin 8.4 g/dL (14.0-18.0); Mean Corpuscular Hemoglobin 31.3 pg (27.0-31.0); Platelet Count 479 10x3/uL (130-400); RBC Distribution Width 14.7 % (11.5-14.5); White Blood Cell (WBC) Count 10.4 10x3/uL (4.8-10.8)
[2022-06-28 08:33] LABS: Anion Gap 8 mmol/L (10-20); BUN (Urea Nitrogen) 8 mg/dL (8.4-25.7); Calc. Creatinine Clearance 121 mL/min (70-130); Calcium 8.3 mg/dL (7.8-10.44); Carbon Dioxide 28 mmol/L (23-31); Chloride 106 mmol/L (98-107); Estimated GFR 95; Glucose 106 mg/dL (83-110); Magnesium 1.8 mg/dL (1.6-2.6); Phosphorus 2.8 mg/dL (2.3-4.7); Potassium 4.1 mmol/L (3.5-5.1); Sodium 138 mmol/L (136-145)
[2022-06-28] MEDS: Ramipril 5 MG CAP PO SCH (08:49)
[2022-06-28] MEDS: Ferrous Sulfate 325 MG TAB PO SCH ×2 (08:50→17:42)
[2022-06-28] MEDS: Tamsulosin HCl 0.4 MG CAP PO SCH (08:50)
[2022-06-28] MEDS: Famotidine 20 MG TAB PO SCH ×2 (08:51→20:55)
[2022-06-28] MEDS: Saccharomyces boulardii 250 MG CAP PO SCH (08:51)
[2022-06-28] MEDS: Furosemide 20 MG/2 ML VIAL SLOW IVP SCH ×2 (08:51→17:42)
[2022-06-28] MEDS: Senokot S 8.6-50 MG TAB PO SCH ×2 (09:07→20:55)
[2022-06-28] MEDS: Enoxaparin Sodium 40 MG/0.4 ML SYRINGE SC SCH (09:07)
[2022-06-28] MEDS: Polyethylene Glycol 3350 17 GM Packet PO SCH (09:07)
[2022-06-28] MEDS: Ascorbic Acid 500 mg Chewable Tablet PO SCH (09:08)
[2022-06-28] MEDS ORDERED: guaiFENesin/Codeine 200 mg/20 mg 10 ml Cup PO PRN (09:22)
[2022-06-28] MEDS ORDERED: fentaNYL PF 100 MCG/2 ML SYRINGE ONE (12:23)
[2022-06-28] MEDS ORDERED: Norepinephrine 4 MG/4 ML VIAL ONE (12:45)
[2022-06-28] MEDS ORDERED: Ropivacaine 0.5% HCl/PF (150 MG/30 ML VIAL) ONE (12:54)
[2022-06-28] MEDS ORDERED: Rocuronium Bromide 10 MG/ML (10ML VIAL) ONE (13:08)
[2022-06-28] MEDS ORDERED: Phenylephrine 10 MG/ML VIAL ONE (13:08)
[2022-06-28] MEDS ORDERED: Ondansetron PF 4 MG/2 ML Vial ONE (13:08)
[2022-06-28] MEDS ORDERED: PROPOFOL 200 MG/20 ML VIAL ONE (13:08)
[2022-06-28] MEDS ORDERED: Bacitracin Zinc Ointment 30 gm TUBE ONE (14:26)
[2022-06-28] MEDS ORDERED: Neomycin-Polymyxin 1 ML AMP ONE (14:26)
[2022-06-28] MEDS ORDERED: FENTANYL 50 MCG/ML 1 ML VIAL ONE ×3 (16:29→17:09)
[2022-06-28] MEDS ORDERED: Ondansetron HCl/PF 4 MG/2 ML Vial IVP PRN (16:33)
[2022-06-28] MEDS ORDERED: Promethazine HCl 25 MG/ML VIAL IM PRN ×2 (16:33→17:39)
[2022-06-28] MEDS ORDERED: Promethazine HCl 25 MG/ML VIAL IVPB PRN (16:33)
[2022-06-28] MEDS ORDERED: PACU-Morphine 4MG/ML VIAL SLOW IVP PRN (16:38)
[2022-06-28] MEDS ORDERED: Morphine Sulfate 2 MG/ML SYRINGE SLOW IVP PRN (16:38)
[2022-06-28] MEDS ORDERED: HYDROmorphone 2 MG/ML VIAL SLOW IVP PRN (16:38)
[2022-06-28] MEDS ORDERED: Meperidine HCl/PF 25 MG/ML VIAL IM PRN (17:39)
[2022-06-28] MEDS: DAPTOmycin 700 MG in Sodium Chloride 0.9% 100 ML IVPB SCH (17:42)
[2022-06-28] MEDS: traZODone HCl 50 MG TAB PO SCH (20:55)
[2022-06-28] MEDS: Melatonin 3 MG TAB PO SCH (20:56)
[2022-06-28] MEDS: HYDROcodone/Acetaminophen 7.5/325 mg Tablet PO PRN (23:45)
[2022-06-28] MEDS: Gentamicin Sulfate 100 MG in Premix Bag 1 BAG IVPB SCH (23:47)
[2022-06-29] MEDS: Meropenem 1 GM in Sodium Chloride 0.9% 100 ML IVPB SCH ×3 (02:09→18:28)
[2022-06-29] MEDS: Morphine 4 MG/ML VIAL SLOW IVP PRN ×2 (02:33→08:22)
[2022-06-29] MEDS: guaiFENesin/DM ER PO PRN ×2 (02:39→17:21)
[2022-06-29] MEDS ORDERED: Ketorolac Tromethamine 30 MG/ML VIAL IVP SCH (04:00)
[2022-06-29] MEDS: HYDROcodone/Acetaminophen 7.5/325 mg Tablet PO PRN (06:18)
[2022-06-29] MEDS: Furosemide 20 MG/2 ML VIAL SLOW IVP SCH ×2 (06:18→14:20)
[2022-06-29 06:40] LABS: Anion Gap 9 mmol/L (10-20); BUN (Urea Nitrogen) 8 mg/dL (8.4-25.7); Calc. Creatinine Clearance 126 mL/min (70-130); Calcium 8.1 mg/dL (7.8-10.44); Carbon Dioxide 28 mmol/L (23-31); Chloride 106 mmol/L (98-107); Estimated GFR 97; Glucose 97 mg/dL (83-110); Magnesium 1.7 mg/dL (1.6-2.6); Phosphorus 2.5 mg/dL (2.3-4.7); Potassium 4.2 mmol/L (3.5-5.1); Sodium 139 mmol/L (136-145)
[2022-06-29] MEDS ORDERED: Magnesium 2 GM/50 ML(in water) 2 GM in Premix Bag 1 BAG IVPB SCH (08:15)
[2022-06-29] MEDS ORDERED: Sodium Phosphate 30 MMOL in Sodium Chloride 0.9% 250 ML 250 ML IVPB SCH (08:15)
[2022-06-29] MEDS: Ascorbic Acid 500 mg Chewable Tablet PO SCH (08:24)
[2022-06-29] MEDS: Tamsulosin HCl 0.4 MG CAP PO SCH (08:25)
[2022-06-29] MEDS: Ferrous Sulfate 325 MG TAB PO SCH ×2 (08:25→17:14)
[2022-06-29] MEDS: Ramipril 5 MG CAP PO SCH (08:27)
[2022-06-29] MEDS: Saccharomyces boulardii 250 MG CAP PO SCH (08:27)
[2022-06-29] MEDS: Famotidine 20 MG TAB PO SCH ×2 (08:27→20:43)
[2022-06-29] MEDS: Enoxaparin Sodium 40 MG/0.4 ML SYRINGE SC SCH (08:28)
[2022-06-29] MEDS: Senokot S 8.6-50 MG TAB PO SCH ×2 (08:28→20:43)
[2022-06-29] MEDS: Polyethylene Glycol 3350 17 GM Packet PO SCH (08:28)
[2022-06-29] MEDS ORDERED: Furosemide 20 MG/2 ML VIAL SLOW IVP SCH (10:32)
[2022-06-29] MEDS: Acetaminophen 325 MG TAB PO PRN ×2 (11:17→20:43)
[2022-06-29] MEDS: Ketorolac Tromethamine 30 MG/ML VIAL IVP SCH ×2 (12:03→17:14)
[2022-06-29] MEDS ORDERED: Prevnar 13-Val Conj/PF 0.5 ML SYRINGE IM ONE (12:45)
[2022-06-29] MEDS: DAPTOmycin 700 MG in Sodium Chloride 0.9% 100 ML IVPB SCH (14:18)
[2022-06-29 16:06] LABS: SARS-CoV-2 NAA Rapid Test Not Detected (NotDetected)
[2022-06-29] MEDS: Melatonin 3 MG TAB PO SCH (20:43)
[2022-06-29] MEDS: traZODone HCl 50 MG TAB PO SCH (20:43)
[2022-06-30] MEDS: Ketorolac Tromethamine 30 MG/ML VIAL IVP SCH ×4 (00:30→17:26)
[2022-06-30] MEDS: Gentamicin Sulfate 100 MG in Premix Bag 1 BAG IVPB SCH (00:42)
[2022-06-30] MEDS: Meropenem 1 GM in Sodium Chloride 0.9% 100 ML IVPB SCH ×3 (01:55→17:26)
[2022-06-30] MEDS: Furosemide 20 MG/2 ML VIAL SLOW IVP SCH ×2 (05:15→15:41)
[2022-06-30 05:39] LABS: #Eosinphils 0.1 thou/uL (0.0-0.7); #Lymphocytes 1.9 thou/uL (1.20-3.40); #Neutrophils 9.4 thou/uL (1.40-6.50); %Basophils 0.2 % (0.0-1.0); %Eosinophils 1.2 % (0.0-10.0); %Lymphocytes 15.2 % (21.0-51.0); %Monocytes 8.1 % (0.0-10.0); %Neutrophils 75.4 % (42.0-75.0); Hemoglobin 8.3 g/dL (14.0-18.0); Mean Corpuscular HGB CONC 31.2 g/dL (32.0-36.0); Mean Corpuscular Hemoglobin 31.6 pg (27.0-31.0); Mean Platelet Volume 7.2 fL (7.4-10.4); Platelet Count 507 10x3/uL (130-400); RBC Distribution Width 14.6 % (11.5-14.5); Red Blood Cell (RBC) Count 2.63 mill/uL (4.70-6.10); White Blood Cell (WBC) Count 12.4 10x3/uL (4.8-10.8)
[2022-06-30 05:55] LABS: Phosphorus 2.5 mg/dL (2.3-4.7)
[2022-06-30 06:07] LABS: Anion Gap 5 mmol/L (10-20); BUN (Urea Nitrogen) 10 mg/dL (8.4-25.7); Calc. Creatinine Clearance 121 mL/min (70-130); Calcium 8.3 mg/dL (7.8-10.44); Carbon Dioxide 33 mmol/L (23-31); Chloride 104 mmol/L (98-107); Estimated GFR 95; Glucose 99 mg/dL (83-110); Potassium 4.1 mmol/L (3.5-5.1); Sodium 138 mmol/L (136-145)
[2022-06-30] MEDS: Ascorbic Acid 500 mg Chewable Tablet PO SCH (08:51)
[2022-06-30] MEDS: Polyethylene Glycol 3350 17 GM Packet PO SCH (08:51)
[2022-06-30] MEDS: Enoxaparin Sodium 40 MG/0.4 ML SYRINGE SC SCH (08:51)
[2022-06-30] MEDS: Famotidine 20 MG TAB PO SCH ×2 (08:52→22:36)
[2022-06-30] MEDS: Saccharomyces boulardii 250 MG CAP PO SCH (08:52)
[2022-06-30] MEDS: Ferrous Sulfate 325 MG TAB PO SCH ×2 (08:52→17:26)
[2022-06-30] MEDS: Tamsulosin HCl 0.4 MG CAP PO SCH (08:52)
[2022-06-30] MEDS: Senokot S 8.6-50 MG TAB PO SCH ×2 (08:52→22:37)
[2022-06-30] MEDS: Ramipril 5 MG CAP PO SCH (08:52)
[2022-06-30] MEDS ORDERED: Mening Vac A,C,Y,W-135 Dip/PF (MENVEO) IM ONE (09:00)
[2022-06-30] MEDS: DAPTOmycin 700 MG in Sodium Chloride 0.9% 100 ML IVPB SCH (15:41)
[2022-06-30] MEDS ORDERED: Gentamicin 80 MG/2 ML VIAL IM SCH (22:00)
[2022-06-30] MEDS: Melatonin 3 MG TAB PO SCH (22:36)
[2022-06-30] MEDS: traZODone HCl 50 MG TAB PO SCH (22:37)
[2022-07-01] MEDS: Ketorolac Tromethamine 30 MG/ML VIAL IVP SCH ×3 (00:06→11:58)
[2022-07-01] MEDS: Gentamicin Sulfate 100 MG in Premix Bag 1 BAG IVPB SCH (00:07)
[2022-07-01] MEDS: Acetaminophen/Codeine 30-300mg Tablet PO PRN (00:14)
[2022-07-01] MEDS: Meropenem 1 GM in Sodium Chloride 0.9% 100 ML IVPB SCH ×2 (01:12→09:06)
[2022-07-01] MEDS: Furosemide 20 MG/2 ML VIAL SLOW IVP SCH ×2 (05:23→14:21)
[2022-07-01 05:26] LABS: #Eosinphils 0.1 thou/uL (0.0-0.7); #Lymphocytes 1.9 thou/uL (1.20-3.40); #Monocytes 0.9 thou/uL (0.11-0.59); #Neutrophils 7.4 thou/uL (1.40-6.50); %Basophils 0.4 % (0.0-1.0); %Eosinophils 0.9 % (0.0-10.0); %Lymphocytes 18.1 % (21.0-51.0); %Monocytes 9.1 % (0.0-10.0); %Neutrophils 71.6 % (42.0-75.0); Mean Corpuscular HGB CONC 30.2 g/dL (32.0-36.0); Mean Corpuscular Hemoglobin 30.6 pg (27.0-31.0); Platelet Count 522 10x3/uL (130-400); RBC Distribution Width 14.7 % (11.5-14.5); Red Blood Cell (RBC) Count 2.62 mill/uL (4.70-6.10); White Blood Cell (WBC) Count 10.3 10x3/uL (4.8-10.8)
[2022-07-01 05:46] LABS: Anion Gap 8 mmol/L (10-20); BUN (Urea Nitrogen) 6 mg/dL (8.4-25.7); Calc. Creatinine Clearance 125 mL/min (70-130); Calcium 8.3 mg/dL (7.8-10.44); Carbon Dioxide 32 mmol/L (23-31); Chloride 104 mmol/L (98-107); Estimated GFR 98; Glucose 92 mg/dL (83-110); Potassium 3.9 mmol/L (3.5-5.1); Sodium 140 mmol/L (136-145)
[2022-07-01] MEDS ORDERED: Haemoph B Poly Conj-Tet Tox/PF 10 MCG/0.5 ML VIAL IM ONE (09:00)
[2022-07-01] MEDS: Polyethylene Glycol 3350 17 GM Packet PO SCH (09:11)
[2022-07-01] MEDS: Enoxaparin Sodium 40 MG/0.4 ML SYRINGE SC SCH (09:11)
[2022-07-01] MEDS: Ramipril 5 MG CAP PO SCH (09:11)
[2022-07-01] MEDS: Saccharomyces boulardii 250 MG CAP PO SCH (09:12)
[2022-07-01] MEDS: Ascorbic Acid 500 mg Chewable Tablet PO SCH (09:12)
[2022-07-01] MEDS: Ferrous Sulfate 325 MG TAB PO SCH (09:12)
[2022-07-01] MEDS: Tamsulosin HCl 0.4 MG CAP PO SCH (09:12)
[2022-07-01] MEDS: Senokot S 8.6-50 MG TAB PO SCH (09:12)
[2022-07-01] MEDS: Famotidine 20 MG TAB PO SCH (09:12)
[2022-07-01 12:20] VITALS: BP 161/86; TEMP 98
[2022-07-01] MEDS: DAPTOmycin 700 MG in Sodium Chloride 0.9% 100 ML IVPB SCH (14:02)
[2022-07-01 15:47] VITALS: BMI 26.2
[2022-07-02] MEDS ORDERED: FLU VACC QS2022-23(65YR UP)/PF 240 MCG/0.7 ML SYRINGE IM ONE (09:00)
== END 2022-07-01 16:42 | DRG 957 ==
LOC: ERS 16:52 → SDC 19:57 → CCU 19:58 → SURG B 06-04 14:15 → CCU 06-06 04:12 → SURG A 06-14 18:40 → CCU 06-22 16:46 → SURG A 06-22 18:09
PROVIDERS: ADMIT Surgery; ATTEND Surgery
PROC: 04L43DZ Occlusion of Splenic Artery with Intraluminal Device, Percutaneous Approach (ICD-10-PCS; principal; 2022-05-26)
PROC: 30233N1 Transfusion of Nonautologous Red Blood Cells into Peripheral Vein, Percutaneous Approach (ICD-10-PCS; 2022-05-26)
PROC: 30233K1 Transfusion of Nonautologous Frozen Plasma into Peripheral Vein, Percutaneous Approach (ICD-10-PCS; 2022-05-26)
PROC: 6A550Z2 Pheresis of Platelets, Single (ICD-10-PCS; 2022-05-26)
PROC: B4101ZZ Fluoroscopy of Abdominal Aorta using Low Osmolar Contrast (ICD-10-PCS; 2022-05-26)
PROC: 5A09357 Assistance with Respiratory Ventilation, Less than 24 Consecutive Hours, Continuous Positive Airway Pressure (ICD-10-PCS; 2022-05-28)
PROC: 0W9B30Z Drainage of Left Pleural Cavity with Drainage Device, Percutaneous Approach (ICD-10-PCS; 2022-05-29)
PROC: 0B9L4ZZ Drainage of Left Lung, Percutaneous Endoscopic Approach (ICD-10-PCS; 2022-05-31)
PROC: 0WPB30Z Removal of Drainage Device from Left Pleural Cavity, Percutaneous Approach (ICD-10-PCS; 2022-05-31)
PROC: 0W9B30Z Drainage of Left Pleural Cavity with Drainage Device, Percutaneous Approach (ICD-10-PCS; 2022-05-31)
PROC: 0D9670Z Drainage of Stomach with Drainage Device, Via Natural or Artificial Opening (ICD-10-PCS; 2022-05-31)
PROC: 02HV33Z Insertion of Infusion Device into Superior Vena Cava, Percutaneous Approach (ICD-10-PCS; 2022-06-02)
PROC: 3E0436Z Introduction of Nutritional Substance into Central Vein, Percutaneous Approach (ICD-10-PCS; 2022-06-03)
PROC: 0D9W4ZZ Drainage of Peritoneum, Percutaneous Endoscopic Approach (ICD-10-PCS; 2022-06-06)
PROC: 0W9B30Z Drainage of Left Pleural Cavity with Drainage Device, Percutaneous Approach (ICD-10-PCS; 2022-06-06)
PROC: 0W2BX0Z Change Drainage Device in Left Pleural Cavity, External Approach (ICD-10-PCS; 2022-06-07)
PROC: 5A1955Z Respiratory Ventilation, Greater than 96 Consecutive Hours (ICD-10-PCS; 2022-06-08)
PROC: 0W9B30Z Drainage of Left Pleural Cavity with Drainage Device, Percutaneous Approach (ICD-10-PCS; 2022-06-08)
PROC: 0BNL0ZZ Release Left Lung, Open Approach (ICD-10-PCS; 2022-06-09)
PROC: 0BQT0ZZ Repair Diaphragm, Open Approach (ICD-10-PCS; 2022-06-09)
PROC: 5A09357 Assistance with Respiratory Ventilation, Less than 24 Consecutive Hours, Continuous Positive Airway Pressure (ICD-10-PCS; 2022-06-13)
PROC: 0D9W0ZZ Drainage of Peritoneum, Open Approach (ICD-10-PCS; 2022-06-22)
PROC: 07BP0ZZ Excision of Spleen, Open Approach (ICD-10-PCS; 2022-06-22)
PROC: 0WQ80ZZ Repair Chest Wall, Open Approach (ICD-10-PCS; 2022-06-22)
PROC: 0PSH04Z Reposition Right Radius with Internal Fixation Device, Open Approach (ICD-10-PCS; 2022-06-29)
PROC: 0PUH0JZ Supplement Right Radius with Synthetic Substitute, Open Approach (ICD-10-PCS; 2022-06-29)
PROC: 02HV33Z Insertion of Infusion Device into Superior Vena Cava, Percutaneous Approach (ICD-10-PCS; 2022-06-29)
PROC: B5181ZA Fluoroscopy of Superior Vena Cava using Low Osmolar Contrast, Guidance (ICD-10-PCS; 2022-06-29)
PROC: B548ZZA Ultrasonography of Superior Vena Cava, Guidance (ICD-10-PCS; 2022-06-29)
DX: S36.032A Major laceration of spleen, initial encounter (principal); Z20.822 Contact with and (suspected) exposure to COVID-19; S27.2XXA Traumatic hemopneumothorax, initial encounter; G93.41 Metabolic encephalopathy; J86.9 Pyothorax without fistula; K65.1 Peritoneal abscess; J15.9 Unspecified bacterial pneumonia; K66.1 Hemoperitoneum; T79.4XXA Traumatic shock, initial encounter; J96.02 Acute respiratory failure with hypercapnia; S92.315B Nondisplaced fracture of first metatarsal bone, left foot, initial encounter for open fracture; S52.571A Other intraarticular fracture of lower end of right radius, initial encounter for closed fracture; S52.611A Displaced fracture of right ulna styloid process, initial encounter for closed fracture; S22.42XA Multiple fractures of ribs, left side, initial encounter for closed fracture; S27.321A Contusion of lung, unilateral, initial encounter; D62 Acute posthemorrhagic anemia; N17.9 Acute kidney failure, unspecified; E87.20 Acidosis, unspecified; S27.808A Other injury of diaphragm, initial encounter; K56.7 Ileus, unspecified; F05 Delirium due to known physiological condition; S36.09XA Other injury of spleen, initial encounter; S42.022A Displaced fracture of shaft of left clavicle, initial encounter for closed fracture; S42.112A Displaced fracture of body of scapula, left shoulder, initial encounter for closed fracture; I12.9 Hypertensive chronic kidney disease with stage 1 through stage 4 chronic kidney disease, or unspecified chronic kidney disease; N18.30 Chronic kidney disease, stage 3 unspecified; T79.6XXA Traumatic ischemia of muscle, initial encounter; L08.89 Other specified local infections of the skin and subcutaneous tissue; D73.3 Abscess of spleen; E87.6 Hypokalemia; R73.9 Hyperglycemia, unspecified; E88.09 Other disorders of plasma-protein metabolism, not elsewhere classified; K59.00 Constipation, unspecified; S30.0XXA Contusion of lower back and pelvis, initial encounter; E87.5 Hyperkalemia; Z78.1 Physical restraint status; Z79.899 Other long term (current) drug therapy; Z87.891 Personal history of nicotine dependence; Y92.410 Unspecified street and highway as the place of occurrence of the external cause; V27.49XA Other motorcycle driver injured in collision with fixed or stationary object in traffic accident, initial encounter
CPT/HCPCS: 29125; 31624; 36245; 36246; 36415; 36416; 36430; 36569; 36600; 37244; 70450; 71045; 71250; 71260; 72125; 72170; 74018; 74022; 74177; 75726; 75774; 80048; 80053; 80061; 80076; 80170; 80306; 80307; 81001; 82140; 82550; 82805; 83605; 83690; 83735; 83880; 84100; 84134; 84145; 84484; 85025; 85610; 85730; 86850; 86900; 86901; 87040; 87070; 87077; 87086; 87149; 87186; 87205; 87324; 87449; 87811; 88112; 88305; 90471; 90648; 90670; 90715; 90734; 93005; 93010; 93970; 94002; 94003; 94640; 94660; 96374; 97139; C1713; C1751; C1758; C1769; C1776; C1884; C1889; C1894; C9113; G0009; G0390; J0330; J0360; J0610; J0690; J0878; J1100; J1200; J1580; J1630; J1644; J1650; J1815; J1885; J1940; J2001; J2060; J2185; J2250; J2270; J2370; J2405; J2543; J2704; J2765; J2795; J3010; J3230; J3475; J3490; J7030; J7042; J7050; J7070; J7120; J7620; P9016; P9035; P9045; P9047; P9048; P9059; Q9967; S0028; U0002; U0003; U0005

== ENCOUNTER 2023-01-18 03:42 | Inpatient (IN) | payer MEDICARE ==
[2023-01-18] MEDS ORDERED: Morphine 4 MG/ML VIAL ONE (03:54)
[2023-01-18] MEDS ORDERED: Ondansetron PF 4 MG/2 ML Vial ONE (03:54)
[2023-01-18 04:21] LABS: #Monocytes 0.7 thou/uL (0.11-0.59); #Neutrophils 11.2 thou/uL (1.40-6.50); %Basophils 0.3 % (0.0-1.0); %Lymphocytes 7.7 % (21.0-51.0); %Monocytes 5.5 % (0.0-10.0); Hemoglobin 14.6 g/dL (14.0-18.0); Mean Corpuscular HGB CONC 34.8 g/dL (32.0-36.0); Mean Corpuscular Hemoglobin 36.2 pg (27.0-31.0); Mean Platelet Volume 9.2 fL (7.4-10.4); Platelet Count 303 10x3/uL (130-400); RBC Distribution Width 13.9 % (11.5-14.5); Red Blood Cell (RBC) Count 4.03 mill/uL (4.70-6.10); White Blood Cell (WBC) Count 13.1 10x3/uL (4.8-10.8)
[2023-01-18 04:45] LABS: ALT (SGPT) 17 U/L (8-55); AST (SGOT) 16 U/L (5-34); Albumin 4.3 g/dL (3.4-4.8); Alkaline Phosphatase 109 U/L (40-110); Anion Gap 15 mmol/L (10-20); BUN (Urea Nitrogen) 14 mg/dL (8.4-25.7); Bilirubin, Total 0.7 mg/dL (0.2-1.2); Calc. Creatinine Clearance 0 mL/min (70-130); Calcium 11.1 mg/dL (7.8-10.44); Carbon Dioxide 23 mmol/L (23-31); Chloride 105 mmol/L (98-107); Estimated GFR 63; Globulin 3.2 g/dL (2.4-3.5); Glucose 113 mg/dL (83-110); Lipase 17 U/L (8-78); Protein, Total 7.5 g/dL (5.8-8.1); Sodium 139 mmol/L (136-145)
[2023-01-18] MEDS ORDERED: Midazolam HCl 2 mg/2 ml Vial ONE (06:07)
[2023-01-18] MEDS ORDERED: Benzocaine 20% Spray 60 ML CAN ONE (06:09)
[2023-01-18 06:32] VITALS: BMI 20.5
[2023-01-18] MEDS ORDERED: Iopamidol 370 76% 100 ML VIAL ONE (08:37)
[2023-01-18] MEDS ORDERED: GASTROGRAFIN 30 ML BOT ONE (08:59)
[2023-01-18] MEDS ORDERED: MD-Gastroview 120 ML BOT ONE (08:59)
[2023-01-18] MEDS ORDERED: Morphine 4 MG/ML VIAL SLOW IVP PRN (09:20)
[2023-01-18] MEDS ORDERED: Ondansetron ODT 4 MG TAB PO PRN (09:21)
[2023-01-18] MEDS ORDERED: hydrALAZINE 20 MG/ML VIAL SLOW IVP PRN (09:22)
[2023-01-18 09:23] LABS: Lactic Acid 0.8 mmol/L (0.5-2.2)
[2023-01-18] MEDS ORDERED: Morphine 2 MG/ML VIAL ONE (09:35)
[2023-01-18] MEDS ORDERED: Morphine 2 MG/ML VIAL SLOW IVP SCH ×2 (09:45→10:00)
[2023-01-18] MEDS: Sodium Chloride 0.9% 1,000 ML IV SCH ×3 (12:42→22:13)
[2023-01-18] MEDS: Ondansetron PF 4 MG/2 ML Vial IVP PRN ×2 (14:35→23:33)
[2023-01-19 05:50] LABS: #Monocytes 0.7 thou/uL (0.11-0.59); #Neutrophils 5.5 thou/uL (1.40-6.50); %Basophils 0.4 % (0.0-1.0); %Lymphocytes 13.3 % (21.0-51.0); %Monocytes 10.3 % (0.0-10.0); %Neutrophils 75.6 % (42.0-75.0); Hemoglobin 13.1 g/dL (14.0-18.0); Mean Corpuscular HGB CONC 33.9 g/dL (32.0-36.0); Mean Corpuscular Hemoglobin 35.4 pg (27.0-31.0); Mean Corpuscular Volume 104.3 fl (78.0-98.0); Mean Platelet Volume 9.3 fL (7.4-10.4); Platelet Count 284 10x3/uL (130-400); White Blood Cell (WBC) Count 7.2 10x3/uL (4.8-10.8)
[2023-01-19 06:15] LABS: Anion Gap 12 mmol/L (10-20); BUN (Urea Nitrogen) 16 mg/dL (8.4-25.7); Calc. Creatinine Clearance 66 mL/min (70-130); Calcium 10.6 mg/dL (7.8-10.44); Carbon Dioxide 25 mmol/L (23-31); Chloride 108 mmol/L (98-107); Estimated GFR 79; Glucose 115 mg/dL (83-110); Potassium 3.7 mmol/L (3.5-5.1); Sodium 141 mmol/L (136-145)
[2023-01-19] MEDS: Sodium Chloride 0.9% 1,000 ML IV SCH ×2 (08:26→17:21)
[2023-01-19 09:15] LABS: Magnesium 1.9 mg/dL (1.6-2.6); Phosphorus 3.2 mg/dL (2.3-4.7)
[2023-01-19] MEDS: Ondansetron PF 4 MG/2 ML Vial IVP PRN (10:50)
[2023-01-19] MEDS ORDERED: Magnesium 2 GM/50 ML(in water) 2 GM in Premix Bag 1 BAG IVPB SCH (15:00)
[2023-01-19] MEDS ORDERED: Potassium Phosphate 30 MMOL, Magnesium Sulfate 2 GM in Sodium Chloride 0.9% 250 ML 250 ML IVPB SCH (15:00)
[2023-01-19] MEDS: Atorvastatin Calcium 20 MG TAB PO SCH (21:00)
[2023-01-20] MEDS: Sodium Chloride 0.9% 1,000 ML IV SCH ×3 (03:25→17:31)
[2023-01-20 07:35] LABS: #Monocytes 0.9 thou/uL (0.11-0.59); #Neutrophils 5.3 thou/uL (1.40-6.50); %Basophils 0.4 % (0.0-1.0); %Monocytes 12.1 % (0.0-10.0); %Neutrophils 72.1 % (42.0-75.0); Hemoglobin 12.2 g/dL (14.0-18.0); Mean Corpuscular HGB CONC 33.8 g/dL (32.0-36.0); Mean Corpuscular Volume 106.5 fl (78.0-98.0); Mean Platelet Volume 9.3 fL (7.4-10.4); Platelet Count 275 10x3/uL (130-400); Red Blood Cell (RBC) Count 3.39 mill/uL (4.70-6.10); White Blood Cell (WBC) Count 7.4 10x3/uL (4.8-10.8)
[2023-01-20 07:59] LABS: Anion Gap 13 mmol/L (10-20); BUN (Urea Nitrogen) 16 mg/dL (8.4-25.7); Calc. Creatinine Clearance 68 mL/min (70-130); Calcium 10.1 mg/dL (7.8-10.44); Carbon Dioxide 23 mmol/L (23-31); Chloride 113 mmol/L (98-107); Estimated GFR 81; Glucose 95 mg/dL (83-110); Sodium 145 mmol/L (136-145)
[2023-01-20] MEDS: Ramipril 5 MG CAP PO SCH (08:19)
[2023-01-20] MEDS: Ondansetron PF 4 MG/2 ML Vial IVP PRN (08:45)
[2023-01-20] MEDS: Atorvastatin Calcium 20 MG TAB PO SCH (21:38)
[2023-01-21] MEDS: Sodium Chloride 0.9% 1,000 ML IV SCH ×2 (01:02→18:23)
[2023-01-21 06:49] LABS: Anion Gap 12 mmol/L (10-20); BUN (Urea Nitrogen) 9 mg/dL (8.4-25.7); Calc. Creatinine Clearance 78 mL/min (70-130); Calcium 9.5 mg/dL (7.8-10.44); Carbon Dioxide 21 mmol/L (23-31); Chloride 112 mmol/L (98-107); Estimated GFR 91; Glucose 84 mg/dL (83-110); Potassium 3.7 mmol/L (3.5-5.1); Sodium 141 mmol/L (136-145)
[2023-01-21] MEDS: Ramipril 5 MG CAP PO SCH (09:15)
[2023-01-21] MEDS ORDERED: Sodium Chloride 0.9% 1,000 ML IV SCH (10:37)
[2023-01-21] MEDS: Atorvastatin Calcium 20 MG TAB PO SCH (20:25)
[2023-01-22 08:08] VITALS: BP 152/76; TEMP 97.6
[2023-01-22] MEDS ORDERED: Methylcellulose 500 MG TAB PO SCH (09:00)
[2023-01-22] MEDS ORDERED: Aspirin 81 mg Enteric Coated Tablet PO SCH (09:00)
[2023-01-22] MEDS ORDERED: Polyethylene Glycol 3350 17 GM Packet PO SCH (09:00)
[2023-01-22] MEDS: Ramipril 5 MG CAP PO SCH (09:21)
== END 2023-01-22 12:50 | disposition home or self-care (01) | DRG 390 ==
LOC: ERS 03:42 → ERHOLD 06:00 → SURG A 11:59
PROVIDERS: ADMIT Surgery; ATTEND Nurse Practitioner Family
PROC: 0D9670Z Drainage of Stomach with Drainage Device, Via Natural or Artificial Opening (ICD-10-PCS; principal; 2023-01-18)
DX: K56.600 Partial intestinal obstruction, unspecified as to cause (principal); I10 Essential (primary) hypertension; E78.5 Hyperlipidemia, unspecified; Z66 Do not resuscitate; Z79.899 Other long term (current) drug therapy; Z79.82 Long term (current) use of aspirin; Z98.890 Other specified postprocedural states; Z87.891 Personal history of nicotine dependence
CPT/HCPCS: 36415; 71045; 74177; 74250; 80048; 80053; 83605; 83690; 83735; 84100; 84484; 85025; 93005; 96361; 96374; 96375; J2250; J2270; J2272; J2405; J3475; J7050; Q9963; Q9967

== ENCOUNTER 2024-01-04 12:37 | Outpatient (CLI) | payer MEDICARE | END 2024-01-04 12:38 | disposition home or self-care (01) | LOC: BICCT 12:37 | PROVIDERS: ATTEND Surgery | DX: K43.2 Incisional hernia without obstruction or gangrene (principal); R16.1 Splenomegaly, not elsewhere classified; M95.4 Acquired deformity of chest and rib | CPT/HCPCS: 74177; 82565 ==